=== PATIENT | female | born 1955 | race Caucasian/White ===

== ENCOUNTER 2021-02-23 | Emergency (ER) | payer OTHER, SELFPAY ==
[2021-02-23] VITALS (7 sets, daily range): BP systolic 99–136; BP diastolic 57–86; PULSE 83–99; RESP 16–18; TEMP 36.2; O2SAT 97–100
[2021-02-23 00:47] LABS: Basophils Percent Auto 0.2 % (0.2-1.2); Eosinophils Absolute Auto 0.1 K/mm3 (0-0.3); Eosinophils Percent Auto 0.4 % (0-4.4); Hematocrit 40.6 % (37.0-47.0); Hemoglobin 13.7 g/dL (12.0-15.0); Immature Granulocyte Absolute 0.06 K/mm3 (0.00-0.031); Immature Granulocyte Percent A 0.5 % (0-0.5); Lymphocytes Absolute Auto 0.77 K/mm3 (0.9-3.2); Mean Corpuscular HGB Conc 33.7 g/dl (32-36); Mean Corpuscular Hemoglobin 30.6 pg (26-34); Mean Corpuscular Volume 90.8 fl (80-100); Monocytes Absolute Auto 0.7 K/mm3 (0.1-0.6); Monocytes Percent Auto 5.7 % (2.6-8.5); Neutrophils Absolute Auto 11.2 K/mm3 (1.3-6.7); Neutrophils Percent Auto 87.2 % (45.5-73.1); Platelet Count Result 236 k/mm3 (150-375); Red Blood Count 4.47 M/mm3 (4.2-5.4); Red Cell Distribution Width 13.2 % (11.5-14.5); White Blood Count 12.9 K/mm3 (4.5-10.0)
[2021-02-23 01:00] LABS: Alanine Aminotransferase 17 U/L (4-35); Albumin Level 4.3 g/dL (3.5-5.1); Alkaline Phosphatase 64 U/L (38-126); Anion Gap 6 mmol/L (8-16); Aspartate Amino Transferase 25 U/L (14-36); Bilirubin,Total 0.4 mg/dL (0.2-1.3); Blood Urea Nitrogen 20 mg/dL (7-17); Calcium 9.2 mg/dL (8.4-10.2); Carbon Dioxide 26 mmol/L (22-30); Chloride 104 mmol/L (98-107); Estimated CRCL calculation 52 ml/min; Estimated Glomerular Filt Rate > 60; Glucose 146 mg/dL (65-105); Lipase 74 U/L (23-300); Magnesium 1.9 mg/dL (1.6-2.3); Potassium 3.8 mmol/L (3.4-5.0); Sodium 136 mmol/L (137-145)
[2021-02-23] MEDS: LORazepam INJ (*CRX) 2 MG/ML VIAL 0.5 MG IV PUSH ×2 (01:47→04:41)
[2021-02-23] MEDS: ONDANSETRON INJ 4 MG/2 ML VIAL IV PUSH (01:47)
[2021-02-23] MEDS: MAGNESIUM SULF 1 GM/D5W 100 ML 1 GM/100 ML BAG IVPB (01:48)
[2021-02-23] MEDS: SODIUM CHLORIDE 0.9% IV 1,000 ML 999 ML IV CONT (01:48)
--- NOTE | 2021-02-23 03:32 | ED.GENADULT ---
HPI - General Adult General Chief complaint: Nausea/Vomiting/Diarrhea Stated complaint: diarrhea, vomiting, leg cramps Time Seen by Provider: 02/23/21 00:31 History of Present Illness HPI narrative: Patient 66-year-old female presents emergency department with complaint of nausea and vomiting. Patient reports that she went out with some friends and they all started getting nausea and vomiting. The patient reports she has history of problems with gastroenteritis in the past and tends to get electrolyte abnormalities and get cramping. The patient states she has cramping in her legs and is feels generally unwell afterwards patient denies having localizing abdominal pain with this. Patient denies fever or chills Related Data Allergies Allergy/AdvReac Type Severity Reaction Status Date / Time Penicillins Allergy Unknown Verified 02/11/14 15:15 NKFA Allergy Unknown Uncoded 04/01/03 11:25 Review of Systems Review of Systems: Narrative: A 10 system review of systems was completed on the patient and is negative except for what is stated in the HPI. Nursing and ancillary documentation was reviewed. [facility] Family History Family History Mother Family history of malignant neoplasm of breast in first degree relative, Onset Age: 81 Patient's mother is Social History Social History Smoking status: Never smoker Alcohol intake: current Exam Narrative: Exam Narrative: GENERAL: Well-appearing, well-nourished, and in no acute distress. HEAD: Normocephalic, atraumatic. EYES: PERRLA and EOMI. ENT: Nares clear, no rhinorrhea or epistaxis. Mucous membranes moist. NECK: Supple. CHEST: Clear to auscultation. No respiratory distress. HEART: Regular rate and rhythm. No murmur heard. Normal peripheral pulses. ABDOMEN: Soft, nontender to palpation, nondistended, normal active bowel sounds. EXTREMITIES: Normal range of motion. No edema. SKIN: Warm, dry, no rash. NEURO: No focal deficits. Alert and oriented x3. PSYCH: Normal mood and affect. Course Vital Signs Vital signs: Vital Signs Temperature 36.2 C L 02/23/21 00:19 Pulse Rate 87 02/23/21 00:19 Respiratory Rate 16 02/23/21 00:19 Blood Pressure 136/86 02/23/21 00:19 Pulse Oximetry 98 02/23/21 00:19 Temperature 36.2 C L 02/23/21 00:19 Pulse Rate 90 02/23/21 06:39 Respiratory Rate 18 02/23/21 06:39 Blood Pressure 107/57 L 02/23/21 06:39 Pulse Oximetry 98 02/23/21 06:39 Medical Decision Making Vital Signs Vital Signs: Vital Signs Temperature 36.2 C L 02/23/21 00:19 Pulse Rate 87 02/23/21 00:19 Respiratory Rate 16 02/23/21 00:19 Blood Pressure 136/86 02/23/21 00:19 Pulse Oximetry 98 02/23/21 00:19 Temperature 36.2 C L 02/23/21 00:19 Pulse Rate 90 02/23/21 06:39 Respiratory Rate 18 02/23/21 06:39 Blood Pressure 107/57 L 02/23/21 06:39 Pulse Oximetry 98 02/23/21 06:39 Lab Data Result diagrams: 02/23/21 00:40 02/23/21 00:40 Labs: Lab Results 02/23/21 02/23/21 02/23/21 Range/Units 00:40 00:40 03:21 WBC 12.9 H (4.5-10.0) K/mm3 RBC 4.47 (4.2-5.4) M/mm3 Hgb 13.7 (12.0-15.0) g/dL Hct 40.6 (37.0-47.0) % MCV 90.8 (80-100) fl MCH 30.6 (26-34) pg MCHC 33.7 (32-36) g/dl RDW 13.2 (11.5-14.5) % Plt Count 236 (150-375) k/mm3 MPV 9.0 (7.4-10.4) fl Immature Gran % (Auto) 0.5 (0-0.5) % Neut % (Auto) 87.2 H (45.5-73.1) % Lymph % (Auto) 6.0 L (18.3-44.2) % [place] % (Auto) 5.7 (2.6-8.5) % Eos % (Auto) 0.4 (0-4.4) % Baso % (Auto) 0.2 (0.2-1.2) % Lymph # (Auto) 0.77 L (0.9-3.2) K/mm3 [place] # (Auto) 0.7 H (0.1-0.6) K/mm3 Eos # (Auto) 0.1 (0-0.3) K/mm3 Baso # (Auto) 0.0 (0.0-0.1) K/mm3 Abs Immat Gran (auto) 0.06 H (0.00-0.031) K/mm3 Absolute
[2021-02-23 03:56] LABS: Add Urine Microscopic? YES; Appearance Urine Clear (Clear); Bacteria Urine Trace /hpf; Bilirubin Urine Negative (Negative); Blood Urine Negative (Negative); Color Urine Yellow (Yellow); Glucose Urine UA Negative (Negative); Ketones Urine Negative (Negative); Leukocyte Esterase Ur Negative LEU/UL (Negative); Mucus Urine Rare /lpf; Nitrate Urine Negative (Negative); Protein Urine 1+ mg/dL (Negative); RBC Urine 0-2 /hpf (0-2); Specific Grav Ur 1.017 (1.001-1.035); Squamous Epithelial Cell Urine Rare /hpf (Few); Urobilinogen Urine Negative mg/dL (<2.0); WBC Urine 0-3 /hpf
[2021-02-23] MEDS: PROCHLORPERAZINE EDISYLATE 10 MG/2 ML VIAL IV PUSH (05:13)
== END 2021-02-23 07:13 | disposition home or self-care (01) ==
PROVIDERS: General Practice; Emergency Provider Emergency Medicine
DX: K52.9 Noninfective gastroenteritis and colitis, unspecified (principal); R25.2 Cramp and spasm
CPT/HCPCS: 36415; 80053; 81001; 83690; 83735; 85025; 96365; 96375; 96376; 99284; J0780; J2060; J2405; J3475; J7030

== ENCOUNTER 2023-08-15 14:51 | Outpatient (CLI) | payer MEDICARE, SELFPAY ==
--- NOTE | ~2023-08-15 | MR_ITS ---
EXAMINATION: MR IAC wo/w con DATE: 08/15/2023 16:03 INDICATION: Hearing loss. TECHNIQUE: Magnetic resonance imaging (MRI) of the brain, brainstem, and internal auditory canals was performed without and with 12 mL MultiHance intravenous contrast. COMPARISON: None. FINDINGS: There are a few scattered areas of nonspecific increased T2-weighted signal intensity in th e cerebral white matter, which is within normal limits for the patient's age. There is no intracrania l hemorrhage, acute infarction, or abnormal intracranial mass lesion. The ventricles are normal in si ze. There is mild mucosal thickening in the ethmoid sinuses. The orbits are normal. The internal kingsley tory canals and inner ears and tympanic cavities are normal. The mastoid air cells are normal. IMPRESSION: 1. Normal brain. Reviewed, dictated and finalized at location E. LOPMENTAL THERAPIST IMPRESSION: 1. Normal brain.
== END 2023-08-15 14:52 | disposition home or self-care (01) ==
LOC: ANHIMG 15:00
DX: H91.90 Unspecified hearing loss, unspecified ear (principal)
CPT/HCPCS: 70553; A9577

== ENCOUNTER 2024-06-12 14:57 | Outpatient (CLI) | payer MEDICARE, SELFPAY ==
--- NOTE | ~2024-06-12 | XR_ITS ---
EXAMINATION: XR foot RT min 3V DATE: 06/12/2024 15:37 INDICATION: Right foot pain. TECHNIQUE: 4 views of right foot were obtained. COMPARISON: None. FINDINGS: Bone alignment is normal. No fracture. There is mild osteoarthritis of first metatarsophala ngeal joint and some of the interphalangeal joints. There is an enthesophyte at plantar aspect of dee caneal tuberosity. IMPRESSION: 1. Mild polyarticular osteoarthritis. Reviewed, dictated and finalized at location A.
== END 2024-06-12 14:58 | disposition home or self-care (01) ==
DX: M19.071 Primary osteoarthritis, right ankle and foot (principal)
CPT/HCPCS: 73630

== ENCOUNTER 2025-09-29 10:45 | Emergency (ER) | payer MEDICARE, SELFPAY ==
--- NOTE | ~2025-09-29 | CT_ITS ---
EXAMINATION: CT abdomen pelvis w con DATE: 09/29/2025 12:40 INDICATION: Lower abdominal pain. Pelvic pain. TECHNIQUE: Computed tomography (CT) of the abdomen and pelvis was performed with 100 cc Omnipaque 350 intravenous contrast. The dose-length product was 177.47 mGy-cm. Automated exposure control and iterative reconstruction technique were employed. COMPARISON: None. FINDINGS: There is dependent atelectasis. Heart size normal. No significant pleural or pericardial effusion. Fatty infiltration of the liver. There are liver cysts. The spleen, pancreas, adrenal glands are unremarkable. Gallbladder is present. The kidneys are unremarkable. Nonobstructive bowel gas pattern. Appendix is unremarkable. There is thickening of the sigmoid colon with mild surrounding inflammatory change, consistent with acute diverticulitis. No evidence for perforation or abscess. Mild phlegmonous change. Trace free fluid in the pelvis. No discrete abscess. There is levoscoliosis. There is osteoarthritis of the hips. IMPRESSION: 1. Acute uncomplicated diverticulitis of the sigmoid colon. Reviewed, dictated and finalized at location O. D DONOR RECRUITER SUPERVISOR
[2025-09-29 10:52] VITALS: BP 125/70; PULSE 59; RESP 17; O2SAT 99
--- OUTSIDE RECORDS SUMMARY | 2025-09-29 11:15 | XMS_ITS | Encounter Summary ---
Author Organization [facility] Healthcare Address [address] [place] [id number] Care Team Providers Care Sausage Grinder Name Role Phone Francesca Whitman MD Primary Care Provider + Reason for Visit * Reason Comments Abdominal Pain Lower abdominal pain , low grade fever, headache x 2 days Encounter Details Date Type Department Care Team (Late st Contact Info) Description 09/29/2025 11:15 AM INFRASTRUCTURE ANALYST Office Visit [facility] at [address] [phone] Reina Odonnell NP [address] [place] [phone] Lower abdominal pain (Primary Dx); Pelvic pain Social History Tobacco Use Types Packs/Day Years Used Date Smoking Tobacco: Former Smokeless Tobacco: Never Alcohol Use Standard Drinks/Week Comments Yes 0 (1 standard drink = 0.6 oz pur e alcohol) rarely PHQ-2 Answer Date Recorded PHQ-2 Total Score (If total score is 3 or more points, staff should administer the PHQ-9) 0 08/05/2025 AUDIT-C Answer Date Recorded Q1: How often do you have a drink containing alc ohol? Never 08/05/2025 Average Number of Drinks Not on file 025 Frequency of Binge Drinking Not on file 07/10 Comments No Sex and Gender Information Value Date Recorded Sex Assigned at Not on file Legal Sex Female 3:13 AM INFRASTRUCTURE ANALYST Gender Identity Female 07/06/2021 8:12 AM CDT Sexual Orientation Not on file documented as of this encounter Last Filed Vital Signs Vital Sign Reading Time Taken Comments Blood Pressure 103/69 09/29/2025 9:28 AM INFRASTRUCTURE ANALYST Pulse 85 09/29/2025 9:28 AM INFRASTRUCTURE ANALYST Temperature 37 C (98.6 F) 09/29/2025 9:28 AM INFRASTRUCTURE ANALYST Respiratory Rate 18 09/29/2025 9:28 AM INFRASTRUCTURE ANALYST Oxygen Saturation 98% 09/29/2025 9:28 AM INFRASTRUCTURE ANALYST Inhaled Oxygen Concentration - - Weight 56.7 kg (125 lb) 09/29/2025 9:28 AM INFRASTRUCTURE ANALYST Height 172.7 cm (5' 8) 09/29/2025 9:28 AM INFRASTRUCTURE ANALYST Body Mass Index 19.01 09/29/2025 9:28 AM INFRASTRUCTURE ANALYST documented in this encounter Patient Instructions * Patient Instructions* Reina Odonnell NP - 09/29/2025 11:15 AM INFRASTRUCTURE ANALYST Patient presents with right lower quadrant, suprapubic pain, pelvic pain, left lower quadrant abdominal pain x2 days. Patient is having difficulty with increased pain with sitting and standing. Patient denies any dysuria. Reports pain feels similar to when she had PID previously and was admitted for IV antibiotics. Patient has a history of section otherwise no previous surgical history. Patient does report low-grade fever at home. Vitals were stable in the clinic. UA overall normal other than a trace amount of blood. Concern for intra-abdominal etiology. Patient will also likely needpain management as she is having difficulty with movement and pain Component Ref Range & Units 09/29/25 0958 Color, Urine, POC Dark Yellow Clarity, ur, POC Clear Clear Glucose, ur, POC Negative Negative Bilirubin, ur, POC Negative Negative Ketones, ur, POC Negative Trace Abnormal Specific [place], POC 1.003 - 1.030 1.015 Blood, ur, POC Negative Trace Abnormal pH, ur, POC 5.0 - 8.0 6.5 Protein, ur, POC Negative Negative Urobilinogen, urine, POC 0.2 - 1.0 mg/dL 0.2 Nitrite, ur, POC Negative Negative Leukocytes, ur, POC Negative Negative Lot Number [id number] ASTRUCTURE ANALYST documented in this encounter Plan of Treatment Scheduled Orders Name Type Priority Associated Diagnoses Orde r Schedule Urine culture Urine, clean voided Microbiology Routine Lower abdominal pain Expected: 09/29/2025, Expires: 09/29/2026 documented as of this encounter Procedures Procedure Name Priority Date/Time Associated Diagnosis Comments POCT URINALYSIS DIPSTICK Routine 09/29/2025 9:58 AM INFRASTRUCTURE ANALYST Lower abdominal pain documented in this encounter Results * (ABNORMAL) POCT urinalysis dipstick (09/29/2025 9:58 AM INFRASTRUCTURE ANALYST) Color, Urine, POC Dark Yellow Clarity, ur, POC Clear Clear Glucose, ur, POC Negative Negative Bilirubin, ur, POC Negative Negative Ketones, ur, POC Trace(A) Negative Specific [place], POC 1.015 1.003 - 1.030 Blood, ur, POC Trace(A) Negative pH, ur, POC 6.5 5.0 - 8.0 Protein, ur, POC Negative Negative Urobilinogen, urine, POC 0.2 0.2 - 1.0 mg/dL Nitrite, ur, POC Negative Negative Leukocytes, ur, POC Negative Negative Lot Number [id number] Urine 09/29/2025 9:58 AM INFRASTRUCTURE ANALYST Reina Odonnell NP POINT OF CARE TEST ORDERAB LES Final Result documented in this encounter Visit Diagnoses Diagnosis Lower abdominal pain- Primary Abdominal pain, other specified site Pelvic pain documented in this encounter Care Teams Sausage Grinder Relationship Specialty Start Date End Date Francesca Whitman MD PCP - General 04/03/18 documented as of this encounter
--- OUTSIDE RECORDS SUMMARY | 2025-09-29 11:15 | XMS_ITS | Encounter Summary ---
Author Organization [facility] Healthcare Address [address] [place] [address] Care Team Providers Care Mold Maker Plastic Molds Name Role Phone Francesca Whitman MD Primary Care Provider + Reason for Visit * Reason Comments Abdominal Pain Lower abdominal pain , low grade fever, headache x 2 days Encounter Details Date Type Department Care Team (Late st Contact Info) Description 09/29/2025 11:15 AM SILVER SOLUTION MIXER Office Visit [facility] at [address] [phone] Reina Odonnell NP [address] [place] [phone] Lower abdominal pain (Primary Dx); Pelvic [...] on file Legal Sex Female 3:13 AM SILVER SOLUTION MIXER Gender Identity Female 07/06/2021 8:12 AM CDT Sexual Orientation Not on file documented as of this encounter Last Filed Vital Signs Vital Sign Reading Time Taken Comments Blood Pressure 103/69 09/29/2025 9:28 AM SILVER SOLUTION MIXER Pulse 85 09/29/2025 9:28 AM SILVER SOLUTION MIXER Temperature 37 C (98.6 F) 09/29/2025 9:28 AM SILVER SOLUTION MIXER Respiratory Rate 18 09/29/2025 9:28 AM SILVER SOLUTION MIXER Oxygen Saturation 98% 09/29/2025 9:28 AM SILVER SOLUTION MIXER Inhaled Oxygen Concentration - - Weight 56.7 kg (125 lb) 09/29/2025 9:28 AM SILVER SOLUTION MIXER Height 172.7 cm (5' 8) 09/29/2025 9:28 AM SILVER SOLUTION MIXER Body Mass Index 19.01 09/29/2025 9:28 AM SILVER SOLUTION MIXER documented in this encounter Patient Instructions * Patient Instructions* Reina Odonnell NP - 09/29/2025 11:15 AM SILVER SOLUTION MIXER Patient presents with right lower quadrant, suprapubic [...] Ketones, ur, POC Negative Trace Abnormal Specific [place], POC 1.003 - 1.030 1.015 Blood, ur, POC Negative Trace Abnormal pH, ur, POC 5.0 - 8.0 6.5 Protein, ur, POC Negative Negative Urobilinogen, urine, POC 0.2 - 1.0 mg/dL 0.2 Nitrite, ur, POC Negative Negative Leukocytes, ur, POC Negative Negative Lot Number [id number] ER SOLUTION MIXER documented in this encounter Plan of Treatment Scheduled Orders Name Type Priority Associated Diagnoses Orde r Schedule Urine culture Urine, clean voided Microbiology Routine Lower abdominal pain Expected: 09/29/2025, Expires: 09/29/2026 documented as of this encounter Procedures Procedure Name Priority Date/Time Associated Diagnosis Comments POCT URINALYSIS DIPSTICK Routine 09/29/2025 9:58 AM SILVER SOLUTION MIXER Lower abdominal pain documented in this encounter Results * (ABNORMAL) POCT urinalysis dipstick (09/29/2025 9:58 AM SILVER SOLUTION MIXER) Color, Urine, POC Dark Yellow Clarity, ur, POC Clear Clear Glucose, ur, POC Negative Negative Bilirubin, ur, POC Negative Negative Ketones, ur, POC Trace(A) Negative Specific [place], POC 1.015 1.003 - 1.030 Blood, ur, POC Trace(A) Negative pH, ur, POC 6.5 5.0 - 8.0 Protein, ur, POC Negative Negative Urobilinogen, urine, POC 0.2 0.2 - 1.0 mg/dL Nitrite, ur, POC Negative Negative Leukocytes, ur, POC Negative Negative Lot Number [id number] Urine 09/29/2025 9:58 AM SILVER SOLUTION MIXER Reina Odonnell NP POINT OF CARE TEST ORDERAB LES Final Result documented in this encounter Visit Diagnoses Diagnosis Lower abdominal pain- Primary Abdominal pain, other specified site Pelvic pain documented in this encounter Care Teams Mold Maker Plastic Molds Relationship Specialty Start Date End Date Francesca Whitman MD PCP - General 04/03/18 documented as of this encounter
[2025-09-29 11:33] LABS: Hematocrit 38.8 % (37.0-47.0); Hemoglobin 12.9 g/dL (12.0-15.0); Immature Granulocyte Percent A 0.3 % (0-0.5); Lymphocytes Absolute Auto 2.04 K/mm3 (0.9-3.2); Mean Corpuscular HGB Conc 33.2 g/dl (32-36); Mean Corpuscular Hemoglobin 30.6 pg (26-34); Mean Corpuscular Volume 91.9 fl (80-100); Nucleated Red Blood Cells Absolute Auto 0.000 K/mm3 (0.0-0.012); Nucleated Red Blood Cells Perc 0.0 % (0.0-0.2); Platelet Count Result 218 k/mm3 (150-375); Red Blood Count 4.22 M/mm3 (4.2-5.4); White Blood Count 10.6 K/mm3 (4.5-10.0)
[2025-09-29 11:43] LABS: Alanine Aminotransferase 16 U/L (6-35); Albumin Level 3.9 g/dL (3.5-5.1); Alkaline Phosphatase 62 U/L (38-126); Anion Gap 6 mmol/L (4-12); Aspartate Amino Transferase 27 U/L (14-36); Bilirubin,Total 0.6 mg/dL (0.2-1.3); Blood Urea Nitrogen 23 mg/dL (7-17); Calcium 9.0 mg/dL (8.4-10.2); Carbon Dioxide 27 mmol/L (22-30); Chloride 101 mmol/L (98-107); Estimated CRCL calculation 41 ml/min; Estimated Glomerular Filt Rate 54; Glucose 96 mg/dL (65-110); Lipase 55 U/L (23-300); Potassium 4.0 mmol/L (3.4-5.0); Sodium 134 mmol/L (137-145); Total Protein 7.0 g/dL (6.3-8.2)
[2025-09-29 11:51] LABS: Add Urine Microscopic? YES; Appearance Urine Clear (Clear); Glucose Urine UA Negative (Negative); Leukocyte Esterase Ur 1+ LEU/UL (Negative); Need Manual Microscopic Reviewed; Nitrate Urine Negative (Negative); Non Pathogenic Casts 0-2; Specific Grav Ur 1.018 (1.001-1.035)
--- NOTE | 2025-09-29 12:16 | ED_ITS ---
HPI - Abdominal Pain General Chief Complaint: Abdominal Pain Stated Complaint: abd. pain Time Seen by Provider: 09/29/25 10:57 Source: patient Mode of arrival: ambulatory Limitations: no limitations History of Present Illness HPI narrative: Patient is a 70-year-old female who presents the ED with report of lower abdominal/pelvic pain. Patient reports having pain for the past 2 days. He denies aggravating or alleviating factors to the pain. Has not taken anything for pain. Denies nausea, vomiting, diarrhea, constipation, fevers, dysuria, hematuria. She does report pressure with urination. Last bowel movement was this morning. She reports history of PID 20 years ago and states this feels similar. Related Data Allergies Allergy/AdvReac Type Severity Reaction Status Date / Time Penicillins Allergy Intermediate Hives Verified 09/29/25 10:55 Review of Systems 2 Review of Systems: All systems reviewed & are unremarkable except as noted in HPI. All systems reviewed & are unremarkable except as noted in HPI and below PMFSH Family History Family History Mother Family history of malignant neoplasm of breast in first degree relative, Onset Age: 81 Patient's mother is Social History Social History Smoking status: Never smoker Alcohol intake: current Exam 2 Narrative: GENERAL: Well appearing, thin, non-toxic, in no acute distress. HEAD: Normocephalic, atraumatic. RESPIRATORY: Airway patent, respirations nonlabored. Clear to auscultation bilaterally, no rales, rhonchi, wheezing. CARDIOVASCULAR: Regular rate and rhythm without murmurs, rubs, or gallops. ABDOMINAL: Soft, mild diffuse tenderness throughout lower abdomen/suprapubic region, nondistended. Normoactive BS. MUSCULOSKELETAL: Moves all extremities. No gross deformities. SKIN: Warm, dry, normal color. NEURO: A&O X3. Speech clear. Cranial nerves II-XII grossly intact. Steady gait. No ataxic movements. PSYCHIATRIC: Appropriate mood and affect. Normal interaction. Course Vital Signs Vital signs: Vital Signs Pulse Rate 59 L 09/29/25 10:52 Respiratory Rate 17 09/29/25 10:52 Blood Pressure 125/70 09/29/25 10:52 Pulse Oximetry 99 09/29/25 10:52 Oxygen Delivery Room Air 09/29/25 10:52 Pulse Rate 80 09/29/25 13:53 Respiratory Rate 16 09/29/25 13:53 Blood Pressure 136/88 09/29/25 13:53 Pulse Oximetry 97 09/29/25 13:53 Oxygen Delivery Room Air 09/29/25 10:52 MDM MDM Narrative Medical decision making narrative: Patient presented to ED with 2 day history of lower abdominal/pelvic pain pressure. Vital signs are stable upon arrival. Patient is in no acute distress. Declined pain medication. CBC with white blood cell count of 10.6. Remainder basic laboratory studies are otherwise fairly unremarkable. Lactic acid within normal range at 0.8. UA is clear. No significant signs of infection. CT scan of abdomen/pelvis was obtained and showing acute uncomplicated sigmoid diverticulitis. No abscess or perforation. Consistent with clinical picture. Discussed lab and imaging findings with patient. She has remained stable throughout ED stay. Feel she is safe for discharge home on oral antibiotics with outpatient follow-up. Will provide information for diverticulitis diet. Given strict return precautions. She is in agreement with plan, all questions answered. Feels comfortable going home. Discharged in stable condition. Differential Diagnosis Differential Diagnosis: Bowel obstruction, diverticulitis, constipation, abdominal pain, PID, UTI, kidney stones Medical Records I have reviewed the following patient records and this information was taken into consideration when formulating the assessment and plan.: previous labs, previous ER visits, previous hospitalizations and previous clinic visits Lab Data [facility] Lab Attestation statement: I personally reviewed the patient's lab results. 09/29/25 11:26 09/29/25 11:26 Labs: Lab Results 09/29/25 Range/Units 11:26 WBC 10.6 H (4.5-10.0) K/mm3 RBC 4.22 (4.2-5.4) M/mm3 Hgb 12.9 (12.0-15.0) g/dL Hct 38.8 (37.0-47.0) % MCV 91.9 (80-100) fl MCH 30.6 (26-34) pg MCHC 33.2 (32-36) g/dl RDW 13.9 (11.5-14.5) % Plt Count 218 (150-375) k/mm3 MPV 9.2 (7.4-10.4) fl Immature Gran % (Auto) 0.3 (0-0.5) % Neut % (Auto) 64.7 (45.5-73.1) % Lymph % (Auto) 19.2 (18.3-44.2) % [place] % (Auto) 14.8 H (2.6-8.5) % Eos % (Auto) 0.8 (0-4.4) % Baso % (Auto) 0.2 (0.2-1.2) % Lymph # (Auto) 2.04 (0.9-3.2) K/mm3 [place] # (Auto) 1.6 H (0.1-0.6) K/mm3 Eos # (Auto) 0.1 (0-0.3) K/mm3 Baso # (Auto) 0.0 (0.0-0.1) K/mm3 Abs Immat Gran (auto) 0.03 (0.00-0.031) K/mm3 Absolute Neuts (auto) 6.9 H (1.3-6.7) K/mm3 Absolute Nucleated RBC 0.000 (0.0-0.012) K/mm3 Nucleated RBC % 0.0 (0.0-0.2) % Sodium 134 L (137-145) mmol/L Potassium 4.0 (3.4-5.0) mmol/L Chloride 101 (98-107) mmol/L Carbon Dioxide 27 (22-30) mmol/L Anion Gap 6 (4-12) mmol/L BUN 23 H (7-17) mg/dL Creatinine 1.02 H (0.7-1.0) mg/dL Estim Creat Clear Calc 41 ml/min Estimated GFR 54 L (59 - ) Glucose 96 (65-110) mg/dL Lactic Acid 0.8 (0.7-2.0) mmol/L Calcium 9.0 (8.4-10.2) mg/dL Total Bilirubin 0.6 (0.2-1.3) mg/dL AST 27 (14-36) U/L ALT 16 (6-35) U/L Alkaline Phosphatase 62 (38-126) U/L Total Protein 7.0 (6.3-8.2) g/dL Albumin 3.9 (3.5-5.1) g/dL Lipase 55 (23-300) U/L Urine Color Yellow (Yellow) Urine Appearance Clear (Clear) Urine pH 6.0 (5.0-9.0) Ur Specific [place] 1.018 (1.001-1.035) Urine Protein Negative (Negative) mg/dL Urine Glucose (UA) Negative (Negative) mg/dL Urine Ketones Negative (Negative) mg/dL Ur Blood (Man) Negative (Negative) Urine Nitrate Negative (Negative) Urine Bilirubin Negative (Negative) Urine Urobilinogen 0.2 (<2.0) mg/dL Add Ur Microanalysis Reviewed Leukocyte Esterase Rfl 1+ H (Negative) KIRAN/UL Urine RBC 0-2 (0-2) /hpf Urine WBC 0-5 (0-3) /hpf Ur Squamous Epith Cells None seen (Few) /hpf Urine Bacteria None seen /hpf Urine Casts 0-2 Imaging Data Attestation: I personally reviewed and interpreted this imaging study as follows: Radiologist's impression: ITS Impressions Abdomen/Pelvis CT 09/29/25 12:42 IMPRESSION: 1. Acute uncomplicated diverticulitis of the sigmoid colon. Discharge Plan Discharge Clinical Impression: Diverticulitis of sigmoid colon Patient Disposition: Home Condition: Stable Instructions: Antibiotic Form, Diverticulitis (ED), High Fiber Diet (ED), Low Fiber Diet (ED), Diverticulitis Diet (ED) Additional Instructions: Take antibiotics as prescribed for diverticulitis. Recommend Tylenol, ibuprofen as needed for pain. Recommend low fiber diet while taking antibiotics and then gradually increasing fiber intake after finishing antibiotics. Stay well hydrated. Follow-up with your primary care doctor for further evaluation. Return to the ED if you experience worsening or severe pain, fevers, unable to keep down food or drink, rectal bleeding, dark black stools, or any other symptoms of concern. Patient Language: Latvian Prescriptions: New metronidazole 500 mg tablet 500 mg PO Q8H 7 Days Qty: 21 0RF ciprofloxacin HCl 500 mg tablet 500 mg PO Q12H 7 Days Qty: 14 0RF No Action ondansetron 4 mg tablet,disintegrating 4 mg PO Q8H PRN (Reason: nausea and vomiting) Qty: 10 0RF Follow-up/Referrals: Alicia Whitman [Other] Time of Disposition: 13:32
--- OUTSIDE RECORDS SUMMARY | 2025-09-29 12:29 | XMS_ITS | Encounter Summary ---
Author Organization [facility] Address [address] [place]: Epic Prelude ADT AICHA OLIVARES [phone] Care Team Providers Care Education Program Associate Name Role Phone Unavailable Primary Care Provider Unavailabl e Encounter Details Date Type Department Care Team (Late st Contact Info) Description 08/07/1995 Outpatient Historical Andrea Villela Social History Tobacco Use Types Packs/Day Years Used Date Smoking Tobacco: Never Assessed Comments Unknown Sex and Gender Information Value Date Recorded Sex Assigned at Not on file Legal Sex Female 4:39 AM DISCOTHEQUE DANCER Gender Identity Not on file Sexual Orientation Not on file documented as of this encounter Plan of Treatment Not on file documented as of this encounter Visit Diagnoses Not on filedocumented in this encounter
--- OUTSIDE RECORDS SUMMARY | 2025-09-29 12:29 | XMS_ITS | Encounter Summary ---
Author Organization [facility] Address [address] [place] [address] Care Team Providers Care Mental Health Nurse Practitioner Name Role Phone Unavailable Primary Care Provider Unavailabl e Encounter Details Date Type Department Care Team (Late st Contact Info) Description 01/11/2000 Outpatient Historical [facility] BACKING IN MACHINE TENDER - Medical [facility] [id number] [facility] [place] [address] [address] Andrea Villela Social History Tobacco Use Types Packs/Day Years Used Date Smoking Tobacco: Never Assessed Comments Unknown Sex and Gender Information Value Date Recorded Sex Assigned at Not on file Legal Sex Female 4:39 AM PHLEBOTOMIST Gender Identity Not on file Sexual Orientation Not on file documented as of this encounter Plan of Treatment Not on file documented as of this encounter Visit Diagnoses Not on filedocumented in this encounter
--- OUTSIDE RECORDS SUMMARY | 2025-09-29 12:29 | XMS_ITS | Clinical Summary ---
Author Organization [facility] Address [address] [place]: Epic Prelude ADT AICHA OLIVARES [address] Care Team Providers Care Hospital Wellness Coordinator Name Role Phone Unavailable Primary Care Provider Unavailabl e Social History Tobacco Use Types Packs/Day Years Used Date Smoking Tobacco: Never Assessed Comments Unknown Sex and Gender Information Value Date Recorded Sex Assigned at Not on file Legal Sex Female 4:39 AM UNDERWATER HUNTER Gender Identity Not on file Sexual Orientation Not on file Plan of Treatment Health Maintenance Due Date Last Done Comments DTAP/TDAP/TD VACCINES (1 - Tdap) 1974 BREAST CANCER SCREENING 1995 COLORECTAL SCREENING 01/31/2000 Colorectal Cancer Screening 01/31/2000 FIT-DNA Q 3 years 01/31/2000 FIT/FOBT Q 1 year 01/31/2000 Flex Sig/CT Colonography Q 5 years 01/31/2000 PNEUMOCOCCAL VACCINE 50+ YEARS (1 of 1 - PCV) 01/31/20 05 ZOSTER VACCINE (1 of 2) 2005 OSTEOPOROSIS SCREENING 01/31/2020 INFLUENZA VACCINE (#1) 2025 RSV VACCINE (60+ or ) (1 - 1-dose 75+ series) 2030
--- OUTSIDE RECORDS SUMMARY | 2025-09-29 12:29 | XMS_ITS | Clinical Summary ---
Author Organization [facility] Address [address] [place] [address] Care Team Providers Care Leacher Name Role Phone Francesca Whitman MD Primary Care Provider + Allergies Active Allergy Reactions Criticality Noted Date Comments Penicillins Hives,Urticaria,Rash Medium 04/27/2016 Medications calcium-mag oxide-vitamin D3 185-50-100 mg-mg-unit capsule Take 6 capsules by mouth daily Active cholecalciferol (VITAMIN D-3) 25 mcg (1,000 unit) tablet Take 1 tablet (1,000 Units total) by mouth daily Active R-LIPOIC ACID ORAL Take 1 tablet/capsule by mouth daily Active cyanocobalamin (Vitamin B-12) 500 mcg tabletIndications: Prevention of Vitamin B12 Deficiency Take 1 tablet (500 mcg total) by mouth daily Active UNABLE TO FIND Take 2 each by mouth daily Med Name: PLANT STEROL 500mg each Active magnesium aspartate (MAGINEX) 61 mg (615 mg) EC tabletIndications: hypomagnesemia Take 1,000 mg by mouth daily Active ascorbic acid (vitamin C) 100 mg tablet Take 1 tablet (100 mg total) by mouth daily Active valACYclovir (VALTREX) 1 gram tabletIndications: herpes simplex infection Take 2 tablets (2,000 mg total) by mouth 2 (two) times a day For just 1 day 6 tablet 1 07/30/20 Active Additional Information Patient not taking.Reported on 09/29/2025 betamethasone valerate (VALISONE) 0.1 % ointmentIndication s:Poison Sujey Apply topically 2 (two) times a day 45 g 10/31/20 24 Active methIMAzole (TAPAZOLE) 5 mg tabletIndications: Hyperthyroidism Take 0.5 tablets (2.5 mg total) by mouth daily 50 tablet 1 04/08/20 Active Additional Information Patient not taking.Reported on 09/29/2025 blood-glucose meter kit Use daily or as directed for monitoring of diabetes. 1 kit 07/29/20 Active blood glucose diagnostic strip Use with glucometer to check blood sugar up to 3x a day 90 strip 3 07/29/20 Active lancets misc Use with glucometer to check blood sugar up to 3x a day 90 each 3 07/29/20 Active rosuvastatin (CRESTOR) 5 mg tabletIndications: Mixed hyperlipidemia Take 1 tablet (5 mg total) by mouth daily 90 tablet 3 08/05/20 026 Active Active Problems Problem Noted Date Diagnosed Date Diabetes type 2, controlled 08/04/2025 Colon polyps 07/23/2024 Overview (07/23/2024): - Colon CA screening - Colonoscopy Nov 2015 [facility] - tics - Colonoscopy April 2021 ([facility] Dr [place]) one 6mm polyp; repeat in 5 yrs (2025) Hyperparathyroidism 05/23/2022 Finger pain, right 06/06/2021 Assessment & Plan (06/06/2021 5:40 PM CDT): Seen recently with Rt pinky pain and stiffness - - DIP Rt hand for 6-8 wks; no trauma Interferes with activities a bit No fever or wt loss No other joints bothersome exc some arthritis in thumbs Mixed hyperlipidemia 04/28/2021 Assessment & Plan (06/06/2021 5:48 PM CDT): No personal hx of CVD. April 2021 LDL 134. ASCVD risk 5.1% Endo recommended starting atorvastatin 5-10mg 3 times per week at first, then gradually increase to daily as tolerated. She was hesitant to start new medication; prefers to try red yeast rice extract first. Recheck lipid panel later this year Lab Results Component Value Date CHOL 218 (H) 04/06/2021 CHOL 197 05/08/2020 CHOL 184 06/19/2019 Lab Results Component Value Date TRIG 127 04/06/2021 TRIG 66 05/08/2020 TRIG 120 06/19/2019 Lab Results Component Value Date HDL 60 04/06/2021 HDL 64 05/08/2020 HDL 53 06/19/2019 Lab Results Component Value Date LDL 134 (H) 04/06/2021 LDL 117 (H) 05/08/2020 LDL 108 (H) 06/19/2019 Assessment & Plan (04/28/2021 10:41 AM CDT): 03/2021: LDL 134. ASCVD risk 5.1%, indication for moderate intensity statin No personal hx of CVD. Recommended starting atorvastatin 5-10mg 3 times per week at first, then gradually increase to daily as tolerated. Pt hesitant to starting new medication. Discussed benefits of statin for CVD prevention. She wants to try red yeast rice extract first. Recheck lipid panel in 3-6 months. 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) 01/27/2021 Overview (06/06/2021): Last Assessment & Plan: - No evidence of recurrence at previous sites - Sun protection education reviewed, handout provided - Annual FBSE recommended Allergic rhinitis 11/06/2019 Cervicalgia 11/06/2019 Nummular eczema 11/06/2019 Polyp of nasal cavity 11/06/2019 Sacroiliitis, not elsewhere classified 0 Sicca syndrome 11/06/2019 Tear film insufficiency 11/06/2019 Temporomandibular joint disorders 11/06/2019 Vitamin D deficiency, unspecified 11/06/2019 Assessment & Plan (06/06/2021 5:46 PM CDT): Lab Results Component Value Date PTH 65 (H) 08/17/2017 Lab Results Component Value Date [id number] 48 07/06/2020 [id number] 29 (L) 12/25/2018 Thyrotoxicosis, unspecified without thyrotoxic crisis or storm 11/06/2019 Assessment & Plan (06/06/2021 5:29 PM CDT): followed by Endo; slowly tapering methimazole; clinically euthyroid. Dec 2017 TSH 1.50, fT4 1.07 Feb 2019 TSH decr to 0.39, fT4 0.9 - methimazole restarted Lab Results Component Value Date TSH 0.71 04/06/2021 TSH 1.06 05/08/2020 TSH 0.59 07/30/2019 FREET4 1.1 04/06/2021 FREET4 1.1 07/30/2019 FREET4 0.9 03/01/2019 Leg pain 04/03/2018 Preventative health care 03/30/2018 Overview (06/06/2021): Health maintenance. General - BMI is in healthy range - Exercise goal >150 min/week; Continue regular exercise - Recommend continue to eat a balanced diet, - DEXA - as above - Eye exam annual in fall - Lipids - as above - Screening for DM as above Cancer Screening - Colon CA screening - Colonoscopy Nov 2015 [facility] - tics - Pap per Outsole Compressor - WWE Aug 2017 (, LMP age 52) - mammogram May 2019 Infectious Disease - Screening HIV (age 13-75) - - Screening Hep C - neg 2016 - Hep B vaccine 2010 - Tetanus booster - will offer - Shingrix recombinant zoster - - Pneumococcal vaccine - PPV23 Pneumovax (as of 2018 - PCV13 Prevnar optional for healthy pts) - will get in Jul flu shot - COVID vaccine - Moderna x 2 Dec 2020 - Annual flu shot Assessment & Plan (06/06/2021 6:05 PM CDT): Thyroid nodule 09/18/2017 Overview (06/06/2021): Cold thyroid nodule on radioactive scan 2016 Thyroid US 2016 - Isoechoic, solid, 2.8x1.9x1cm on left mid to inferior margin. Increased vascularity of the thyroid gland. Benign on biopsy sep 2017 Stable by ultrasound Jul 2019 Assessment & Plan (04/28/2021 10:31 AM CDT): Low suspicion characteristics on US. Thyroid FNA pathology was benign 2016. US stable in 2019. Assessment & Plan (05/23/2020 8:15 PM CDT): Low suspicion characteristics on US. Thyroid FNA pathology was benign 2016. US stable in 2019. Assessment & Plan (08/02/2019 10:54 AM CDT): Low suspicion characteristics on US. Thyroid FNA pathology was benign. US today with no changes. Hyperthyroidism 08/24/2017 Assessment & Plan (06/06/2021 5:45 PM CDT): Hyperthyroidism, dx 2014; followed by Endo; slowly tapering methimazole; clinically euthyroid. Dec 2017 TSH 1.50, fT4 1.07 Feb 2019 TSH decr to 0.39, fT4 0.9 - methimazole restarted Lab Results Component Value Date TSH 0.71 04/06/2021 TSH 1.06 05/08/2020 TSH 0.59 07/30/2019 FREET4 1.1 04/06/2021 FREET4 1.1 07/30/2019 FREET4 0.9 03/01/2019 Assessment & Plan (04/28/2021 10:31 AM CDT): Currently tolerating methimazole 2.5 mg daily. TFTs continue to be normal on this dose. Assessment & Plan (05/23/2020 8:15 PM CDT): Currently tolerating methimazole 2.5 mg daily. TFTs continue to be normal on this dose. Assessment & Plan (08/02/2019 10:53 AM CDT): Currently tolerating methimazole 2.5 mg daily. Reviewed side effects and reasons to stop and call for labs. TFTs were normal on this dose. Osteoporosis 08/03/2017 Assessment & Plan (06/06/2021 5:50 PM CDT): Endo started alendronate January 2019 (had been delayed due to dental work / InvisAlign) then changed to Reclast zoledronate April 2019 DEXA Jul 2017 L spine -2.6, fem neck -1.6, total hip -1.1, DEXA April 2021 L spine -1.9 (ncr 2.7%), fem neck -2.0, hip -0.5 (incr 0.1%) Lab Results Component Value Date PTH 65 (H) 08/17/2017 Lab Results Component Value Date [id number] 48 07/06/2020 [id number] 29 (L) 12/25/2018 Assessment & Plan (04/28/2021 10:46 AM CDT): Continue calcium and vitamin D. Encouraged to continue weight bearing exercises. Received reclast in 04/26, 06/28. DXA yesterday 04/27/21 showed improvement on treatment. Will repeat reclast in 06/2021 assuming normal renal function. Assessment & Plan (05/23/2020 8:14 PM CDT): Continue calcium and vitamin D. Encouraged to continue weight bearing exercises. Received first reclast in 04/26, DXA several months ago showed improvement on treatment. Will repeat reclast assuming normal renal function. Assessment & Plan (08/02/2019 10:53 AM CDT): Continue calcium and vitamin D. Encouraged to continue weight bearing exercises. Received first reclast in 04/26, will repeat DXA after 1 year and likely repeat reclast. Gluten intolerance 06/09/2017 Overview (06/06/2021): Lab tests ruled out celiac. Had diffuse pain, tenderness all over body; feels better with less gluten. May be gluten sensitivity or FODMAP sensitivity Assessment & Plan (06/06/2021 5:59 PM CDT): Peripheral neuropathy 06/09/2017 Assessment & Plan (06/06/2021 5:27 PM CDT): Peripheral neuropathy, painful. Her mother had it too, but no other relatives. Perhaps slight improvement with OTC alpha lipoic acid 2018 Vit B12 was 356 - - suggested taking OTC B12 supplement (1 mg = 1000 mcg/day) Lab Results Component Value Date VITB12 1,172 (H) 07/06/2020 VITB12 356 06/19/2019 VITB12 431.90 06/09/2017 Assessment & Plan (05/23/2020 8:13 PM CDT): Worsening symptoms. Had negative basic workup several years ago. Requesting referral to neurology for evaluation. Carpal tunnel syndrome 08/17/2016 Resolved Problems Problem Noted Date Diagnosed Date Resolved Date Achilles bursitis or tendinitis 11/06/2019 06/06/2021 Paronychia of great toe of left foot 11/06/2019 06/06/2021 Encounters Date Type Department Care Team Description 09/29/2025 11:15 AM ORTHOTIC FINISH GRINDING TECHNICIAN Office Visit [facility] Care at [address] [phone] Reina Odonnell NP Lower abdominal pain (Primary Dx); Pelvic pain 08/05/2025 1:00 PM CDT Office Visit [place] [id number] [facility] [address] [place] [address] Francesca Whitman MD Encounter for Medicare annual wellness exam (Primary Dx); Diabetes type 2, controlled; Mixed hyperlipidemia; Hyperthyroidism 08/05/2025 9:00 AM CDT Clinical Support [facility] Endocrinology Metabolism and Lipid [address] [place] [address] 13[address] [place] [address] [place] [phone] Diabetes type 2, controlled (Primary Dx) 08/01/2025 7:55 AM CDT Lab [address] [address] Hyperthyroidism; Mixed hyperlipidemia; Prediabetes 08/01/2025 Results Follow-Up [facility] 12th [place] [address] [place] [address] Lore Isaac MD Thyroid Function [place], Lipid panel, Hemoglobin A1c 07/29/2025 9:00 AM CDT Clinical Support [facility] Endocrinology Metabolism and Lipid [address] [facility] [address]th [place] [address] [place] [address] Hyperglycemia due to diabetes mellitus (HCC) (Primary Dx) 07/22/2025 9:00 AM CDT Clinical Support [facility] Endocrinology Metabolism and Lipid [address] [facility] [address]th [place] [address] [place] [address] Type 2 diabetes mellitus without complication, without long-term current use of insulin (HCC) (Primary Dx) 07/15/2025 9:00 AM CDT Clinical Support [facility] Endocrinology Metabolism and Lipid [address] [facility] [address] [place] [address] [place] [address] Hyperglycemia due to diabetes mellitus (HCC) (Primary Dx) from Last 3 Months Immunizations Immunization Administration Dates Next Due COVID-19 mRNA ([employer]) 0.3 m L (30 mcg) vaccine (12 years and up) 08/02/2023 Hep B Vaccine 10/09/2010 Influenza, Quad, Adjuvantated, Intramuscular Influenza, Quadrivalent, Hig h Dose, Preservative Free, Intrr 07/11/2022,07/24/2020 Influenza, Quadrivalent, Rec ombinant, Egg Free, Preservative Free, Intramuscular 10/17/2018 Influenza, Quadrivalent, Spl it, Preservative Free, Intramuscular 07/19/2021 Influenza, Trivalent, Preservative Free, Intramu scular 08/17/2016,10/09/2010 Pneumococcal Conjugate Pcv20 06/20/2023 Tdap 04/10/2023 ZOSTER Recombinant 01/14/2021,08/07/2020 Surgical History Surgery Date Site/Laterality Comments SECTION Medical History Medical History Date Comments Disorder of thyroid Carpal tunnel syndrome of right wrist Mild carpal tunnel syndrome of right wrist - (Added by TW Conv) Cellulitis of finger of right hand Cellulitis of thumb, right - (Added by TW Conv) Osteopenia Family History Medical History Relation Name Comments Cancer Father Colon cancer Father Diabetes Father Heart attack Father Heart disease Father Testicular cancer Father Breast cancer Mother Cancer Mother Relation Name Status Comments Father Mother Sister Alive Social History Tobacco Use Types Packs/Day Years Used Date Smoking Tobacco: Former Smokeless Tobacco: Never Tobacco Cessation:Counseling Given: Not Answered Alcohol Use Standard Drinks/Week Comments Yes 0 [...] on file Legal Sex Female 3:13 AM ORTHOTIC FINISH GRINDING TECHNICIAN Gender Identity Female 07/06/2021 8:12 AM CDT Sexual Orientation Not on file Obstetrics History Para Term AB IAB SAB Ectopic Multiple Livin g Live Births 2 1 1 1 1 2 2 Date Outcome GA Total Labor Labor/2nd/3rd Weight Sex Type Anes PTL Love A1 A5 Name Clin 1982 AB 9w0d 1985 Term 2.449 kg (5 lb 6.4 oz) M CS-Un spec Living 1985 Term 2.54 kg (5 lb 9.6 oz) M CS-Un spec Living Last Filed Vital Signs Vital Sign Reading Time Taken Comments Blood Pressure 103/69 09/29/2025 9:28 AM ORTHOTIC FINISH GRINDING TECHNICIAN Pulse 85 09/29/2025 9:28 AM ORTHOTIC FINISH GRINDING TECHNICIAN Temperature 37 C (98.6 F) 09/29/2025 9:28 AM ORTHOTIC FINISH GRINDING TECHNICIAN Respiratory Rate 18 09/29/2025 9:28 AM ORTHOTIC FINISH GRINDING TECHNICIAN Oxygen Saturation 98% 09/29/2025 9:28 AM ORTHOTIC FINISH GRINDING TECHNICIAN Inhaled Oxygen Concentration - - Weight 56.7 kg (125 lb) 09/29/2025 9:28 AM ORTHOTIC FINISH GRINDING TECHNICIAN Height 172.7 cm (5' 8) 09/29/2025 9:28 AM ORTHOTIC FINISH GRINDING TECHNICIAN Body Mass Index 19.01 09/29/2025 9:28 AM ORTHOTIC FINISH GRINDING TECHNICIAN Plan of Treatment Health Maintenance Due Date Last Done Comments Albumin Creatinine Ratio, Urine 1955 Dilated Eye Exam 1955 Covid-19 Vaccine (2024-11 6 season) 2025 08/02/2023, 08/08/2022, 08/06/2021, Additional history exists Influenza Vaccine (#1) 2025 , 07/11/2022, 07/19/2021, Additional history exists Colon Cancer Screening-Colonoscopy 11/20/2025 11/20/2015 Osteoporosis Screening-Bone Density Scan 11/20/2025 11/20/2023, 08/30/2022, 04/27/2021, Additional history exists Hemoglobin A1C 2026 08/01/2025, 08/0 05/2025, 07/30/2024, Additional history exists Breast Cancer Screening-Mammogram 02/24/2026 02/24/2025, 02/21/2024, 11/11/2022, Additional history exists eGFR 05/16/2026 05/16/2025, 12/07, 06/21/2023, Additional history exists Lipid Panel 08/01/2026 08/01/2025, 07/10, 06/21/2023, Additional history exists Depression Screening 08/05/2026 08/05/2025, 07/30/2024, 06/20/2023, Additional history exists Fall Risk Assessment 08/05/2026 08/05/2025, 07/30/2024, 06/20/2023, Additional history exists Foot Exam 08/05/2026 08/05/2025 Well Visit 65+ 08/05/2026 08/05/2025, 07/10, 07/30/2024, Additional history exists DTaP/Tdap/Td Vaccine (2 - Td or Tdap) 04/10/2033 04/10/2023 Hepatitis B Screening Completed 10/09/2010 Colon Cancer Screening-CT Colonography Discontinued 11/20/2015 Colon Cancer Screening-DNA Stool Discontinued 11/20/19 16 Colon Cancer Screening-FIT Discontinued 11/20/2015 Colon Cancer Screening-Sigmoidoscopy Discontinued 11/20/2015 Zoster Vaccine Completed 01/14/2021, 08/07/2020 Hepatitis C Screening Completed 12/23/2022, 017 Pneumococcal vaccine 65+ Completed 06/20/2023 Procedures Procedure Name Priority Date/Time Associated Diagnosis Comments POCT URINALYSIS DIPSTICK Routine 09/29/2025 9:58 AM ORTHOTIC FINISH GRINDING TECHNICIAN Lower abdominal pain HEMOGLOBIN A1C Routine 08/01/2025 8:02 AM CDT Prediabetes LIPID PANEL Routine 08/01/2025 8:02 AM CDT Mixed hyperlipidemia THYROID FUNCTION CASCADE Routine 08/01/2025 8:02 AM CDT Hyperthyroidism EGFR Routine 05/16/2025 8:31 AM CDT Prediabetes SCREENING MAMMOGRAM BILATERAL W ABIEL Schedule Routine, Read Routine (OP Routine) 02/24/2025 1:03 PM CDT Screening mammogram, encounter for DEXA AXIAL AND FOREARM BONE DENSITY SCAN Schedule Routine, Read Routine (OP Routine) 11/20/2023 12:13 PM ORTHOTIC FINISH GRINDING TECHNICIAN Other osteoporosis without current pathological fracture HEPATITIS C SCREENING Routine 12/23/2022 COLONOSCOPY Routine 11/20/2015 from Last 3 Months or Most Recently Relevant to Health Maintenance Results * (ABNORMAL) POCT urinalysis dipstick (09/29/2025 9:58 AM ORTHOTIC FINISH GRINDING TECHNICIAN) Color, Urine, POC Dark Yellow Clarity, ur, POC Clear Clear Glucose, ur, POC Negative Negative Bilirubin, ur, POC Negative Negative Ketones, ur, POC Trace(A) Negative Specific [place], POC 1.015 1.003 - 1.030 Blood, ur, POC Trace(A) Negative pH, ur, POC 6.5 5.0 - 8.0 Protein, ur, POC Negative Negative Urobilinogen, urine, POC 0.2 0.2 - 1.0 mg/dL Nitrite, ur, POC Negative Negative Leukocytes, ur, POC Negative Negative Lot Number [id number] Urine 09/29/2025 9:58 AM ORTHOTIC FINISH GRINDING TECHNICIAN Reina Odonnell NP POINT OF CARE TEST ORDERAB LES Final Result * Thyroid Function [place] (08/01/2025 8:02 AM CDT) TSH 1.43 0.30 - 4.20 mcIUnit/mL Blood 08/01/2025 8:02 AM CDT 08/01/2025 10:41 AM CDT Lore Isaac MD LAB BLOOD ORDERABLES F inal Result Performing Organization Address [facility] de Phone Number [id number] [address] * (ABNORMAL) Hemoglobin A1c (08/01/2025 8:02 AM CDT) [facility] Hgb A1C 5.9(H) 4.0 - 5.6 % Estimated Average Glucose 123 mg/dL [facility] Comment: The ADA recommends reporting an estimated Average Glucose (eAG) with all Hemoglobin A1c results using the equation derived from a study of 507 normal and diabetic adults. Minority populations were underrepresented and children were not included. (Diabetes Care 31:1235-6171, 2008). The eAG is not equivalent to a fasting glucose. Blood 08/01/2025 8:02 AM CDT 08/01/2025 10:41 AM CDT Lore Isaac MD LAB BLOOD ORDERABLES F inal Result Performing Organization Address [facility] de Phone Number [address] [address] * Lipid panel (08/01/2025 8:02 AM CDT) Pathologist [facility] Cholesterol 174 30 - 199 mg/dL Comment: Interpretive Data Ages < or = 19 years Acceptable: <170 mg/dL Borderline high: 170-199 mg/dL High: >or= 200 mg/dL Ages > or = 20 years Desirable: <200 mg/dL Borderline high: 200-239 mg/dL High: >or= 240 mg/dL Literature References: 1. Expert Panel on Integrated Guidelines for Cardiovascular Health and Risk Reduction in Children and Adolescents. Pediatrics 2011;128:S213 2. NCEP Expert Panel. Circulation 2004;110:227 Current Interpretive Data was last revised on 2018. Triglycerides 50 <=149 mg/dL [facility] Comment: Interpretive Data Ages < or = 9 years Acceptable: <75 mg/dL Borderline high: 75-99 mg/dL High: >or= 100 mg/dL Ages 10 to 20 years Acceptable: <90 mg/dL Borderline high: 90-129 mg/dL High: >or= 130 mg/dL Ages > or = 20 years Desirable: <150 mg/dL Borderline high: 150-199 mg/dL High: 200-499 mg/dL Very high: >or= 499 mg/dL Literature References: 1. Expert Panel on Integrated Guidelines for Cardiovascular Health and Risk Reduction in Children and Adolescents. Pediatrics 2011;128:S213 2. NCEP Expert Panel. Circulation 2004;110:227 Current Interpretive Data was last revised on 2018. HDL 60 >=40 mg/dL [facility] Comment: Interpretive Data Ages < or = 19 years Acceptable: >45 mg/dL Borderline low: 40-45 mg/dL Low: <40 mg/dL Ages > or = 20 years Desirable: >or= 60 mg/dL Low: <40 mg/dL Literature References: 1. Expert Panel on Integrated Guidelines for Cardiovascular Health and Risk Reduction in Children and Adolescents. Pediatrics 2011;128:S213 2. NCEP Expert Panel. Circulation 2004;110:227 Current Interpretive Data was last revised on 2018. LDL, calculated 104 <=129 mg/dL [facility] Comment: Interpretive Data Ages < or = 19 years Acceptable: <110 mg/dL Borderline high: 110-129 mg/dL High: >or= 130 mg/dL Ages > or = 20 years Optimal: <100 mg/dL Near optimal: 100-129 mg/dL Borderline high: 130-159 mg/dL High: >160 mg/dL Calculated using the Schafer LDL-C estimating equation. This equation was implemented on 2024. Prior to this date LDL-C was estimated using the Friedewald equation. Literature References: 1. Expert Panel on Integrated Guidelines for Cardiovascular Health and Risk Reduction in Children and Adolescents. Pediatrics 2011;128:S213 2. NCEP Expert Panel. Circulation 2004;110:227 3. Gilmar Keene et al. JARET Cardiol. 2020 February 06;5(5):540-548. doi: 10.1001/[email or web address] Current Interpretive Data was last revised on 2024. Non-HDL Cholesterol 114 mg/dL [facility]AL[facility] Comment: Interpretive Data Ages < or = 19 years Acceptable: <120 mg/dL Borderline high: 120-144 mg/dL High: >145 mg/dL Ages > or = 20 years When triglycerides are >200 mg/dL, Non-HDL cholesterol is a secondary target of therapy with treatment goals that are 30 mg/dL greater than the LDL cholesterol target. Literature References: 1. Expert Panel on Integrated Guidelines for Cardiovascular Health and Risk Reduction in Children and Adolescents. Pediatrics 2011;128:S213 2. NCEP Expert Panel. Circulation 2004;110:227 Current Interpretive Data was last revised on 2018. Chol/HDL ratio 3 [facility] Blood 08/01/2025 8:02 AM CDT 08/01/2025 10:41 AM CDT us Lore Isaac MD LAB BLOOD ORDERABLES F inal Result [facility] [address] [facility] Department [place] [address] * (ABNORMAL) eGFR (05/16/2025 8:31 AM CDT) eGFR 58(L) >=60 mL/min/1. 73 m2 Comment: Interpretive Data Reference Interval Normal >/= 90 mL/min/1.73m2 Mildly decreased* 60 - 89 mL/min/1.73m2 Mildly to moderately decreased 45 - 59 mL/min/1.73m2 Moderately to severely decreased 30 - 44 mL/min/1.73m2 Severely decreased 15 - 29 mL/min/1.73m2 Kidney Failure < 15 mL/min/1.73m2 *Relative to young adult level Estimated glomerular filtration rate is determined by the 2020 CKD-EPI equation recommended by the National Kidney Foundation (A Unifying Approach to GFR Estimation: Recommendations of the NKF-ASK Task Force on Reassessing the Inclusion of Race in Diagnosing Kidney Disease, TANVI 2020). The CKD-EPI equation should not be used for patients with unstable renal function and has not been validated in children and those over 70. Current interpretive data was last reviewed 2021. Blood 05/16/2025 8:31 AM CDT 05/16/2025 10:45 AM CDT Shania Tompkins MD LAB BLOOD ORDERABLES Final Result [facility] [address] [facility] Department [place] [address] * Screening Mammogram Bilateral W Abiel (02/24/2025 1:03 PM CDT) Anatomical Region Laterality Modality Breast Bilateral Mammography Narrative 02/25/2025 3:17 PM CDT Mammogram Technique: Bilateral Digital Breast Tomosynthesis, Bilateral C-view 2D Screening mammogram. Views obtained: bilateral craniocaudal and bilateral mediolateral oblique. Computer Aided Detection was performed. Mammogram Findings: The present examination has been compared to prior imaging studies performed at [facility] on 08/31/2021, 11/11/2022, 02/21/2024 and 10/10/2024. There are scattered areas of fibroglandular density. There is no suspicious abnormality in either breast. There are no significant changes from the prior study. Impression: There is no mammographic evidence of malignancy. Annual screening mammography is recommended. OVERALL FINAL ASSESSMENT: BI-RADS CATEGORY 1: Negative. Procedure Note Jessica Tate MD - 02/25/2025 Mammogram Technique: Bilateral Digital Breast Tomosynthesis, Bilateral C-view 2D Screening mammogram. Views obtained: bilateral craniocaudal and bilateral mediolateral oblique. Computer Aided Detection was performed. Mammogram Findings: The present examination has been compared to prior imaging studies performed at [facility] on 08/31/2021,11/11/2022, 02/21/2024 and 10/10/2024. There are scattered areas of fibroglandular density. There is no suspicious abnormality in either breast. There are no significant changes from the prior study. Impression: There is no mammographic evidence of malignancy. Annual screening mammography is recommended. OVERALL FINAL ASSESSMENT: BI-RADS CATEGORY 1: Negative. us Self Screening Mammogram IMG MAMMO PROCEDURES Fi nal Result * Dexa Axial and Forearm Bone Density Scan (11/20/2023 12:13 PM ORTHOTIC FINISH GRINDING TECHNICIAN) Anatomical Region Laterality Modality Wrist, Body N/A Radiographic Tejal ging Narrative 11/20/2023 1:48 PM ORTHOTIC FINISH GRINDING TECHNICIAN Patient Name: Mary Lou Moser Date of : 1955 Date of scan: 11/20/2023 Bone mineral density was performed on a [employer]oUser[employer] Discovery Densitometer. Based on machine cross-calibration and precision studies the least significant changes of this densitometer is 0.024 g/cm2 at the spine, 0.020 g/cm2 at the total proximal femur, and 0.014g/cm2 at the forearm. HISTORY: This is a 68 y.o. postmenopausal female with a history of osteoporosis and thyroid disease. She reports that she has quit smoking. She has never used smokeless tobacco. Currently on treatment with calcium, vitamin D, zoledronic acid (Reclast), and thyroid hormone. INDICATIONS: Menopause status, treatment monitoring, and history of osteoporosis. FINDINGS: BONE MINERAL DENSITY OF THE LUMBAR SPINE Bone Mineral Density (BMD) of the lumbar spine was measured from L1-L4 and the average density was calculated to be 0.833 gm/cm2. This corresponds to a T-score (standard deviations from the mean of young adults) of -1.9. When compared to the previous study of 12/24/2018 there has been a 0.059 gm/cm (7.7%) increase in bone density that is considered significant. BONE MINERAL DENSITY OF THE PROXIMAL FEMUR Bone Mineral Density (BMD) of the left hip total was found to be 0.869 gm/cm2. This corresponds to a T-score standard deviations from the mean of young adults of -0.6. Femoral neck is 0.698 gm/cm2 with a T-score (standard deviations from the mean of young adults) of -1.4. When compared to the previous study of 12/24/2018 there has been a 0.051 gm/cm (6.2%) increase in bone density that is considered significant. SUMMARY: Bone mineral density shows evidence of low bone mass at the lumbar spine and proximal femur and moderately increased fracture risk (Osteopenia). There has been a significant increase in bone density since previous measurement. ADDITIONAL COMMENTS: Postmenopausal Women and Men Over 50: Diagnostic criteria: Osteoporosis: BMD at or below -2.5 T-score; Osteopenia (low bone mass): BMD between -1.0 and -2.5 T-score. If the patient has a history of a fragility fracture, a fracture that occurred with trauma equivalent to a fall from a standing position or less, then the diagnosis is osteoporosis regardless of bone density. The history and data sections of the bone mineral density scan were prepared by Dianne Self (R)(CBDT) who is accredited by the International Society of Clinical Densitometry. The overall patient assessment and scan interpretation were performed by Brandee Javier M.D. who is certified by the International Society of Clinical Densitometry. [id number] Cecilio Noonan MD IMG DXA PROCEDURES Final Result * HEPATITIS C SCREENING (12/23/2022) [facility] HEP C Normal Comment:per insurance Co 12/07 04/30 Historical Provider HEALTH MAINTENANCE Final Result * COLONOSCOPY (11/20/2015) [facility] Colonoscopy Abnormal Comment:Diverticula, repeat 5 yrs. Historical Provider HEALTH MAINTENANCE Final Result from Last 3 Months or Most Recently Relevant to Health Maintenance Insurance AET[employer] MEDICARE GOLD UHC MEDICARE ADVANTAGE AET[employer] MEDICARE GOLD Advance Directives For more information, please contact: [phone] Documents on File Type Date Recorded Patient Sound Art Instructor Expl anation Power of Biomedical Photographer 08/28/2023 10:17 AM Evelin coleman Power of Biomedical Photographer for Health Care.pdf Care Teams Leacher Relationship Specialty Start Date End Date Francesca Whitman MD PCP - General 04/03/18
--- OUTSIDE RECORDS SUMMARY | 2025-09-29 12:29 | XMS_ITS | Encounter Summary ---
Author Organization [facility] Address [address] [place] [address] Phone Care Team Providers Care Granulating Blender Name Role Phone Francesca Whitman MD Primary Care Provider + Encounter Details Date Type Department Care Team (Late st Contact Info) Description 08/01/2025 Results Follow-Up [facility] [address] 12th [place] [address] [place] [id number] Lore Isaac MD [address] [facility] [address] [place], [place] [id number] Thyroid Function [place], Lipid panel, Hemoglobin A1c Social History Tobacco Use Types Packs/Day Years [...] on file Legal Sex Female 3:13 AM DIRECTOR MBA Gender Identity Female 07/06/2021 8:12 AM CDT Sexual Orientation Not on file documented as of this encounter Plan of Treatment Not on file documented as of this encounter Visit Diagnoses Not on filedocumented in this encounter Care Teams Granulating Blender Relationship Specialty Start Date End Date Francesca Whitman MD PCP - General 04/03/18 documented as of this encounter
--- OUTSIDE RECORDS SUMMARY | 2025-09-29 12:29 | XMS_ITS | Clinical Summary ---
Author Organization [facility] Address [address] [place] [address] Care Team Providers Care Christmas Tree Grower Name Role Phone Francesca Whitman MD Primary Care Provider [phone] Allergies Active Allergy Reactions Criticality Noted Date Comments Penicillins Rash Low 04/03/2023 Medications Calcium-Magnesi um-Vitamin D (CORAL CALCIUM) 185-50-100 MG-MG-UNIT Cap Take 6 capsules by mouth daily. Active vitamin B-12 (CYANOCOBALAMIN ) 500 MCG tablet Take 1 tablet (500 mcg total) by mouth daily. Active methIMAzole (TAPAZOLE) 5 MG tablet Take 0.5 tablets (2.5 mg total) by mouth daily. 03/01/2023 Active Active Problems Problem Noted Date Diagnosed Date Chest pain 04/03/2023 Social History Tobacco Use Types Packs/Day Years Used Date Smoking Tobacco: Never Assessed Comments Unknown Sex and Gender Information Value Date Recorded Sex Assigned at Not on file Legal Sex Female 3:06 PM CDT Gender Identity Not on file Sexual Orientation Not on file Last Filed Vital Signs Vital Sign Reading Time Taken Comments Blood Pressure 124/62 04/04/2023 1:54 PM CDT Pulse 65 04/04/2023 1:54 PM CDT Temperature 37 C (98.6 F) 04/04/2023 8:08 AM CDT Respiratory Rate 18 04/04/2023 1:54 PM CDT Oxygen Saturation 99% 04/04/2023 1:54 PM CDT Inhaled Oxygen Concentration - - Weight 62 kg (136 lb 11 oz) 04/03/2023 3:07 PM C DT Height 172.7 cm (5' 8) 04/03/2023 3:07 PM CDT Body Mass Index 20.78 04/03/2023 3:07 PM CDT Plan of Treatment Health Maintenance Due Date Last Done Comments Colorectal Cancer Screening Colonoscopy (10 Years) 1955 Hepatitis C 1973 DTaP, Tdap and Td Vaccines (1 - Tdap) 1974 Mammogram Screening 1995 Pneumococcal Vaccine: 50+ Years (1 of 1 - PCV) 2005 Annual Medicare Wellness Visit 01/31/2020 Dexa Scan (General) 01/31/2020 COVID-19 Vaccine ( - season) 2025 08/08/2022, 08/06/2021, 12/18/2020, Additional history exists Influenza Adult (#1) 2025 07/19/2021, 07/24/2020, 07/18/2019, Additional history exists RSV Immunization or 60+ Years (1 - 1-dose 75+ series) 2030 Zoster Vaccines Completed 01/14/2021, 08/07/2020 Hepatitis A Vaccines Aged Out No long er eligible based on patient's age to complete this topic Meningococcal B Vaccine Aged Out No l onger eligible based on patient's age to complete this topic Meningococcal Vaccine Aged Out No kathie jimmie eligible based on patient's age to complete this topic RSV Immunizations Under 20 Months Aged Out No longer eligible based on patient's age to complete this topic Insurance [facility] MEDICARE Advance Directives * Full Code (Latest Code Status on File) Date Activated Date Inactivated Comments 04/04/2023 7:09 AM 04/04/2023 3:55 PM Care Teams Christmas Tree Grower Relationship Specialty Start Date End Date Francesca Whitman MD [address] [place] [address] PCP - General INTERNAL MEDICINE 04/03/23
--- OUTSIDE RECORDS SUMMARY | 2025-09-29 12:29 | XMS_ITS | Encounter Summary ---
Author Organization [facility] Address [address] [place] [address] Phone Care Team Providers Care Pattern Shop Supervisor Name Role Phone Tamie Gordillo MD Primary Care Provider [phone] Francesca Whitman MD Primary Care Provider + Encounter Details Date Type Department Care Team (Latest Contact Info) Description 11/20/2017 Orders Only [facility] Scanning, Provider Social History Tobacco Use Types Packs/Day Years Used Date Smoking Tobacco: Never Assessed Comments Unknown Sex and Gender Information Value Date Recorded Sex Assigned at Not on file Legal Sex Female 3:13 AM VICE PRESIDENT RISK MANAGEMENT Gender Identity Female 07/06/2021 8:12 AM CDT Sexual Orientation Not on file documented as of this encounter Plan of Treatment Not on file documented as of this encounter Procedures Procedure Name Priority Date/Time Associated Diagnosis Comments PROCEDURE - RESULT 11/20/2017 documented in this encounter Results * PROCEDURE - RESULT (11/20/2017) us Provider Scanning Final Result documented in this encounter Visit Diagnoses Not on filedocumented in this encounter Additional Health Concerns Infection Onset Date Last Indicated Resolved Time COVID: Suspected 09/24/2022 09/24/2022 09/24/2022 4:20 PM VICE PRESIDENT RISK MANAGEMENT Influenza, adult 09/24/2022 09/24/2022 10/01/2022 3:06 AM VICE PRESIDENT RISK MANAGEMENT documented as of this encounter Care Teams Pattern Shop Supervisor Relationship Specialty Start Date End Date Tamie Gordillo MD [address] [place] [address] PCP - General 02/06/17 04/02/18 Francesca Whitman MD [address] [facility] [address] [place] [address] PCP - General 04/03/18 documented as of this encounter
--- OUTSIDE RECORDS SUMMARY | 2025-09-29 12:29 | XMS_ITS | Clinical Summary ---
Author Organization [email or web address] Address [address] [place] [address] Care Team Providers Care Ceramic Design Engineer Name Role Phone Francesca Whitman MD Primary Care Provider + Source Comments [email or web address],non-owned Affiliates and Associated Physician Practices is amultiple site organization consisting of ambulatory clinics and hospital sitesin [place], [place], [place] and [place]. This disclosure is being madepursuant to the Care Everywhere program and may not contain all information available regarding this patient. Last updated 18.[email or web address] Allergies Active Allergy Reactions Criticality Noted Date Comments Penicillins Urticaria Medium 04/27/2016 Medications * Be aware that medications may not be up to date on this document. Alwaysverify current medications with the patient. methIMAzole (TAPAZOLE) 5 MG tablet 2 1/2 mg once daily 6 Active doxycycline monohydrate 100 MG tabletIndication s:Inflamed epidermoid cyst of skin Take 1 (one) tablet by mouth 2 times daily 60 tablet 2 Active Additional Information Patient not taking.Reported on 11/15/2022 mupirocin (Bactroban) 2 % ointmentIndicati ons:Inflamed epidermoid cyst of skin Apply to affected area twice daily as needed for healing wound. 30 g 2 Active Additional Information Patient not taking.Reported on 11/15/2022 Active Problems Problem Noted Date Diagnosed Date Melanocytic nevi of trunk 03/14/2024 Solar lentiginosis 03/14/2024 Inflamed seborrheic keratosis 03/14/2024 History of nonmelanoma skin cancer 03/14/2024 Hyperparathyroidism 05/23/2022 Mixed hyperlipidemia 04/28/2021 Overview (09/13/2022): Last Assessment & Plan: No personal hx of CVD. April 2021 [...] 117 (H) 05/08/2020 LDL 108 (H) 06/19/2019 Family history of colon cancer 03/16/2021 Overview (09/13/2022): Colonoscopy Nov 2015 [facility] Last Assessment & Plan: Colonoscopy Nov 2015 [facility] Multiple benign nevi of uppe r extremity, lower extremity, and trunk 01/27/2021 Assessment & Plan (01/27/2021 3:37 PM CDT): - No atypical or concerning moles on exam today - Reviewed ABCDEs of melanoma - Sun protection reviewed, handout provided - Annual FBSE recommended Actinic skin damage 01/27/2021 Assessment & Plan (01/27/2021 3:38 PM CDT): - Skin cancer, sun protection, and photoaging discussed - Sunscreen handout provided 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) 01/27/2021 Assessment & Plan (01/27/2021 3:38 PM CDT): - No evidence of recurrence at previous sites - Sun protection education reviewed, handout provided - Annual FBSE recommended Neoplasm of uncertain behavior of skin 1 Assessment & Plan (01/27/2021 3:38 PM CDT): L forehead, stable, present > 40 years - Favor lipoma - Benign, reassurance provided Prediabetes 05/23/2020 Overview (09/13/2022): Last Assessment & Plan: She is very active and has a very healthy diet A1c improved Lab Results Component Value Date HGBA1C 5.6 04/28/2021 HGBA1C 5.8 (H) 05/08/2020 HGBA1C 5.9 (H) 06/19/2019 Achilles bursitis or tendinitis 11/06/2019 Allergic rhinitis 11/06/2019 Cervicalgia 11/06/2019 Temporomandibular joint disorders 11/06/2019 Nailbed spooning 11/06/2019 Nummular eczema 11/06/2019 Other malaise and fatigue 11/06/2019 Pain in joint, shoulder region 11/06/2019 Pain in thoracic spine 11/06/2019 Paronychia of great toe of left foot 11/06/2019 Polyp of nasal cavity 11/06/2019 Sacroiliitis, not elsewhere classified 0 Sicca syndrome 11/06/2019 Tear film insufficiency 11/06/2019 Thyrotoxicosis, unspecified without thyrotoxic crisis or storm 11/06/2019 Vitamin D deficiency, unspecified 11/06/2019 Actinic keratosis 02/06/2019 Assessment & Plan (01/27/2021 3:39 PM CDT): - L dorsal hand x 2 - Premalignant potential discussed - Cryotherapy performed today (see procedure note) - Wound care reviewed, post-cryo handout given - Sun protection reviewed Osteoporosis 08/03/2017 Overview (09/13/2022): Last Assessment & Plan: Endo started alendronate January 2019 (had been delayed due to dental work / InvisAlign) then changed to Reclast zoledronate April 2019 DEXA Jul 2017 L spine -2.6, fem neck -1.6, total hip -1.1, DEXA April 2021 L spine -1.9 (ncr 2.7%), fem neck -2.0, hip -0.5 (incr 0.1%) Lab Results Component Value Date PTH 65 (H) 08/17/2017 Lab Results Component Value Date [id number] 48 07/06/2020 [id number] 29 (L) 12/25/2018 Gluten intolerance 06/09/2017 Overview (09/13/2022): Lab tests ruled out celiac. Had diffuse pain, tenderness all over body; feels better with less gluten. May be gluten sensitivity or FODMAP sensitivity Last Assessment & Plan: Peripheral neuropathy 06/09/2017 Overview (09/13/2022): Last Assessment & Plan: Peripheral neuropathy, painful. Her mother had it too, but no other relatives. Perhaps slight improvement with OTC alpha lipoic acid 2018 Vit B12 was 356 - - suggested taking OTC B12 supplement (1 mg = 1000 mcg/day) Lab Results Component Value Date VITB12 1,172 (H) 07/06/2020 VITB12 356 06/19/2019 VITB12 431.90 06/09/2017 Carpal tunnel syndrome 08/17/2016 Senile sebaceous gland hyperplasia 04/27/2016 Resolved Problems Problem Noted Date Diagnosed Date Resolved Date Acute sinusitis 11/06/2019 12/04/2019 Immunizations Immunization Administration Dates Next Due INFLUENZA VACCINE 07/18/2019 INFLUENZA VACCINE, CELL CULT URE, QUADR. (FLUCELVAX QUADRIVALENT; 6MO+) (CCIIV4) 07/18/2019 INFLUENZA VACCINE, HIGH-DOSE , QUADR. (FLUZONE HIGH-DOSE QUADRIVALENT; 65Y+), 0.7 ML (HD-IIV4) 07/24/2020 Zoster Hzv Vacc Recombinant Inj Im 01/14/2021, iNFLUENZA VACCINE, RECOM-BALLARD, QUADR. (FLUBLOCK QUADRIVALENT; 18Y+) (RIV4) 10/17/2018 Family History Medical History Relation Name Comments None Known Brother None Known Father None Known Maternal Aunt None Known Maternal Grandfather None Known Maternal Grandmother None Known Maternal Uncle None Known Mother None Known Other None Known Paternal Aunt None Known Paternal Grandfather None Known Paternal Grandmother None Known Paternal Uncle None Known Sister Asthma Neg Hx CVA Neg Hx Cancer - Breast Neg Hx Cancer - Other Neg Hx Cancer - Skin, Melanoma Neg Hx Cancer - Skin, Non Melanoma Neg Hx Eczema Neg Hx Hemophilia Neg Hx Psoriasis Neg Hx Relation Name Status Comments Brother Father Maternal Aunt Maternal Grandfather Maternal Grandmother Maternal Uncle Mother Other Paternal Aunt Paternal Grandfather Paternal Grandmother Paternal Uncle Sister Social History Tobacco Use Types Packs/Day Years Used Date Smoking Tobacco: Former Smokeless Tobacco: Never Tobacco Cessation:Counseling Given: Not Answered Alcohol Use Standard Drinks/Week Comments Yes 0 (1 standard drink = 0.6 oz pur e alcohol) Comments Unknown Sex and Gender Information Value Date Recorded Sex Assigned at Not on file Legal Sex Female 10:31 AM SUPERVISOR STRIPPING Gender Identity Not on file Sexual Orientation Not on file Plan of Treatment Health Maintenance Due Date Last Done Comments COLOGUARD (AGES 45-75) - COLON CA SCREENING 1955 COLON MONITORING 1955 COLONOSCOPY - COLON CA SCREENING 1955 CT COLONOGRAPHY - COLON CA SCREENING 1955 Colorectal Cancer Screening 1955 FIT - COLON CA SCREENING 1955 FLEX SIG - COLON CA SCREENING 1955 LIPID TESTING 1955 HEPATITIS C SCREENING 01/25/1973 DTAP/TDAP/TD VACCINES (1 - Tdap) 1974 PNEUMOCOCCAL VACCINE 50+ (1 of 1 - PCV) 2005 Respiratory Syncytial Virus (RSV) Vaccine Pt: or over 60 yrs (1 - Risk 50-74 years 1-dose series) 2005 DEPRESSION SCREENING 10/09/2024 MEDICARE AWV CALENDAR YEAR 2024 COVID-19 VACCINE (3 - 2024- season) 2025 12/18/2020, 11/20/2020 INFLUENZA VACCINE (#1) 2025 , 07/24/2020, 07/18/2019, Additional history exists MAMMOGRAM 02/20/2026 02/21/2024, 02/06, 11/11/2022, Additional history exists ZOSTER VACCINE Completed 01/14/2021, 08/07/2020 BONE DENSITY TESTING Completed 11/20/2023, 08/30/2022, 04/27/2021, Additional history exists HEPATITIS B VACCINE Aged Out No longe r eligible based on patient's age to complete this topic HIB VACCINE Aged Out No longer eligi ble based on patient's age to complete this topic HPV VACCINE Aged Out No longer eligi ble based on patient's age to complete this topic MENINGOCOCCAL (Group B) VACCINE SHARED DECISION-MAKING Aged Out No longer eligible based on patient's age to complete this topic MENINGOCOCCAL GROUPS A/C/Y/W VACCINE Aged Out No longer eligible based on patient's age to complete this topic Insurance AET [facility] AETNA MEDICARE ADV Care Teams Ceramic Design Engineer Relationship Specialty Start Date End Date Francesca Whitman MD PCP - General 02/05/18
--- OUTSIDE RECORDS SUMMARY | 2025-09-29 12:29 | XMS_ITS | Encounter Summary ---
Author Organization [facility] Address [address] [place]: Epic Prelude ADT AICHA OLIVARES [address] Care Team Providers Care Fuel Management Handler Name Role Phone Unavailable Primary Care Provider Unavailabl e Encounter Details Date Type Department Care Team (Late st Contact Info) Description 04/08/1996 Outpatient Historical Andrea Villela Social History Tobacco Use Types Packs/Day Years Used Date Smoking Tobacco: Never Assessed Comments Unknown Sex and Gender Information Value Date Recorded Sex Assigned at Not on file Legal Sex Female 4:39 AM FOUR H AGENT Gender Identity Not on file Sexual Orientation Not on file documented as of this encounter Plan of Treatment Not on file documented as of this encounter Visit Diagnoses Not on filedocumented in this encounter
--- OUTSIDE RECORDS SUMMARY | 2025-09-29 12:29 | XMS_ITS | Encounter Summary ---
Author Organization [facility] Address [address] [place] [address] Care Team Providers Care Weave Defect Charting Clerk Name Role Phone Francesca Whitman MD Primary Care Provider + Encounter Details Date Type Department Care Team (Late st Contact Info) Description 04/09/2021 Telephone [facility] [address] [place] [address] [address] [place] [address] Pamela Aceves, RT Social History Tobacco Use Types Packs/Day Years Used Date Smoking Tobacco: Former Smokeless Tobacco: Never Alcohol Use Standard Drinks/Week Comments Yes 0 (1 standard drink = 0.6 oz pur e alcohol) rarely PHQ-2 Answer Date Recorded PHQ-2 Total Score (If total score is 3 or more points, staff should administer the PHQ-9) 0 06/16/2020 Comments No Sex and Gender Information Value Date Recorded Sex Assigned at Not on file Legal Sex Female 3:13 AM QUARRY SUPERVISOR OPEN PIT Gender Identity Female 07/06/2021 8:12 AM CDT Sexual Orientation Not on file documented as of this encounter Plan of Treatment Not on file documented as of this encounter Visit Diagnoses Not on filedocumented in this encounter Additional Health Concerns Infection Onset Date Last Indicated Resolved Time COVID: Suspected 09/24/2022 09/24/2022 09/24/2022 4:20 PM QUARRY SUPERVISOR OPEN PIT Influenza, adult 09/24/2022 09/24/2022 10/01/2022 3:06 AM QUARRY SUPERVISOR OPEN PIT documented as of this encounter Care Teams Weave Defect Charting Clerk Relationship Specialty Start Date End Date Francesca Whitman MD PCP - General 04/03/18 documented as of this encounter
--- OUTSIDE RECORDS SUMMARY | 2025-09-29 12:29 | XMS_ITS | Encounter Summary ---
Author Organization [facility] Healthcare Address [address] [place] [address] Care Team Providers Care Zinc Miner Name Role Phone Francesca Whitman MD Primary Care Provider + Encounter Details Date Type Department Care Team (Late st Contact Info) Description 04/26/2021 Telephone [facility] [address] [place] [address] [address] [place] [address] Pamela Aceves, RT Social History Tobacco Use [...] on file Legal Sex Female 3:13 AM RADIAL DRILL PRESS OPERATOR Gender Identity Female 07/06/2021 8:12 AM CDT Sexual Orientation Not on file documented as of this encounter Plan of Treatment Not on file documented as of this encounter Visit Diagnoses Not on filedocumented in this encounter Additional Health Concerns Infection Onset Date Last Indicated Resolved Time COVID: Suspected 09/24/2022 09/24/2022 09/24/2022 4:20 PM RADIAL DRILL PRESS OPERATOR Influenza, adult 09/24/2022 09/24/2022 10/01/2022 3:06 AM RADIAL DRILL PRESS OPERATOR documented as of this encounter Care Teams Zinc Miner Relationship Specialty Start Date End Date Francesca Whitman MD PCP - General 04/03/18 documented as of this encounter
--- OUTSIDE RECORDS SUMMARY | 2025-09-29 12:29 | XMS_ITS | Encounter Summary ---
Author Organization [facility] Address [address] [place] [address] Phone Care Team Providers Care Aircraft Delivery Checker Name Role Phone Francesca Whitman MD Primary Care Provider + Encounter Details Date Type Department Care Team (Latest Contact Info) Description 05/28/2021 Orders Only [facility] Scanning, Provider Social History Tobacco Use Types Packs/Day Years Used Date Smoking Tobacco: Former Smokeless Tobacco: Never Alcohol Use Standard Drinks/Week Comments Yes 0 (1 standard drink = 0.6 oz pur e alcohol) rarely AUDIT-C Answer Date Recorded Q1: How often do you have a drink containing alc ohol? Never 05/25/2021 Average Number of Drinks Not on file 021 Frequency of Binge Drinking Not on file 05/09 PHQ-2 Answer Date Recorded PHQ-2 Total Score (If total score is 3 or more points, staff should administer the PHQ-9) 0 06/16/2020 Comments No Sex and Gender Information Value Date Recorded Sex Assigned at Not on file Legal Sex Female 3:13 AM SEMICONDUCTOR PACKAGES TESTER Gender Identity Female 07/06/2021 8:12 AM CDT Sexual Orientation Not on file documented as of this encounter Plan of Treatment Not on file documented as of this encounter Procedures Procedure Name Priority Date/Time Associated Diagnosis Comments SCAN - RADIOLOGY/IMAGING 05/28/2021 documented in this encounter Results * SCAN - RADIOLOGY/IMAGING (05/28/2021) Anatomical Region Laterality Modality Other us Provider Scanning Edited Result - Final documented in this encounter Visit Diagnoses Not on filedocumented in this encounter Additional Health Concerns Infection Onset Date Last Indicated Resolved Time COVID: Suspected 09/24/2022 09/24/2022 09/24/2022 4:20 PM SEMICONDUCTOR PACKAGES TESTER Influenza, adult 09/24/2022 09/24/2022 10/01/2022 3:06 AM SEMICONDUCTOR PACKAGES TESTER documented as of this encounter Care Teams Aircraft Delivery Checker Relationship Specialty Start Date End Date Francesca Whitman MD PCP - General 04/03/18 documented as of this encounter
--- OUTSIDE RECORDS SUMMARY | 2025-09-29 13:22 | XMS_ITS | Encounter Summary ---
Author Organization [facility] Healthcare Address [address] [place] [address] Care Team Providers Care Territory Sales Representative Name Role Phone Francesca Whitman MD Primary Care Provider + Encounter Details Date Type Department Care Team (Late st Contact Info) Description 04/26/2021 Telephone [facility] [address] [place] [address] [address] [place] [address] Pamela Aceves, RT Social History Tobacco Use [...] on file Legal Sex Female 3:13 AM CRYPTOLOGIST Gender Identity Female 07/06/2021 8:12 AM CDT Sexual Orientation Not on file documented as of this encounter Plan of Treatment Not on file documented as of this encounter Visit Diagnoses Not on filedocumented in this encounter Additional Health Concerns Infection Onset Date Last Indicated Resolved Time COVID: Suspected 09/24/2022 09/24/2022 09/24/2022 4:20 PM CRYPTOLOGIST Influenza, adult 09/24/2022 09/24/2022 10/01/2022 3:06 AM CRYPTOLOGIST documented as of this encounter Care Teams Territory Sales Representative Relationship Specialty Start Date End Date Francesca Whitman MD PCP - General 04/03/18 documented as of this encounter
--- OUTSIDE RECORDS SUMMARY | 2025-09-29 13:22 | XMS_ITS | Clinical Summary ---
Author Organization [facility] Address [address] [place] [address] Care Team Providers Care Biodiesel Technology Manager Name Role Phone Francesca Whitman MD Primary Care Provider + Source Comments [facility],non-owned Affiliates and Associated Physician Practices is amultiple site organization consisting of ambulatory clinics and hospital sitesin [place], [place], [place] and [place]. This disclosure is being madepursuant to the Care Everywhere program and may not contain all information available regarding this patient. Last updated 18.[facility] Allergies Active Allergy Reactions Criticality Noted Date [...] cancer 03/16/2021 Overview (09/13/2022): Colonoscopy Nov 2015 [facility] Last Assessment & Plan: Colonoscopy Nov 2015 [facility] Multiple benign nevi of uppe [...] (H) 08/17/2017 Lab Results Component Value Date [id number] 48 07/06/2020 [id number] 29 (L) 12/25/2018 Gluten intolerance 06/09/2017 Overview [...] on file Legal Sex Female 10:31 AM BUSINESS ANALYSIS PROFESSIONAL Gender Identity Not on file Sexual Orientation [...] age to complete this topic Insurance AET [facility] AETNA MEDICARE ADV Care Teams Biodiesel Technology Manager Relationship Specialty Start Date End Date Francesca Whitman MD PCP - General 02/05/18
--- OUTSIDE RECORDS SUMMARY | 2025-09-29 13:22 | XMS_ITS | Clinical Summary ---
Author Organization [facility] Address [address] [place] [address] Care Team Providers Care Ramp Manager Name Role Phone Francesca Whitman MD Primary Care Provider [phone] Allergies Active Allergy Reactions Criticality Noted Date [...] patient's age to complete this topic Insurance [facility] MEDICARE Advance Directives * Full Code (Latest Code Status on File) Date Activated Date Inactivated Comments 04/04/2023 7:09 AM 04/04/2023 3:55 PM Care Teams Ramp Manager Relationship Specialty Start Date End Date Francesca Whitman MD [address] [place] [address] PCP - General INTERNAL MEDICINE 04/03/23
--- OUTSIDE RECORDS SUMMARY | 2025-09-29 13:22 | XMS_ITS | Encounter Summary ---
Author Organization [facility] Address [address] [place] [address] Phone Care Team Providers Care Director [place] Name Role Phone Francesca Whitman MD Primary [...] on file Legal Sex Female 3:13 AM CELL ATTENDANT Gender Identity Female 07/06/2021 8:12 AM CDT [...] COVID: Suspected 09/24/2022 09/24/2022 09/24/2022 4:20 PM CELL ATTENDANT Influenza, adult 09/24/2022 09/24/2022 10/01/2022 3:06 AM CELL ATTENDANT documented as of this encounter Care Teams Director China Relationship Specialty Start Date End Date Francesca Whitman MD PCP - General 04/03/18 documented as of this encounter
--- OUTSIDE RECORDS SUMMARY | 2025-09-29 13:23 | XMS_ITS | Encounter Summary ---
Author Organization [facility] Address [address] [place] [address] Phone Care Team Providers Care Printer Maintainer Name Role Phone Francesca Whitman MD Primary Care Provider + Encounter Details Date Type Department Care Team (Late st Contact Info) Description 08/01/2025 Results Follow-Up [facility] [address]th [place] [address] [place] [phone] Lore Isaac MD [address] [facility] [address] [place], [place] [id number] Thyroid Function [place], Lipid panel, Hemoglobin A1c Social History Tobacco [...] on file Legal Sex Female 3:13 AM ADVICE CLERK Gender Identity Female 07/06/2021 8:12 AM CDT Sexual Orientation Not on file documented as of this encounter Plan of Treatment Not on file documented as of this encounter Visit Diagnoses Not on filedocumented in this encounter Care Teams Printer Maintainer Relationship Specialty Start Date End Date Francesca Whitman MD PCP - General 04/03/18 documented as of this encounter
--- OUTSIDE RECORDS SUMMARY | 2025-09-29 13:23 | XMS_ITS | Clinical Summary ---
Author Organization [facility] Address [address] [place] [address] Care Team Providers Care Allergy And Immunology Chief Name Role Phone Francesca Whitman MD Primary [...] Colon CA screening - Colonoscopy Nov 2015 [facility] - tics - Colonoscopy April 2021 ([facility] [place]) one 6mm polyp; repeat in [...] cancer 03/16/2021 Overview (06/06/2021): Colonoscopy Nov 2015 [facility] Assessment & Plan (06/06/2021 5:57 PM CDT): Colonoscopy Nov 2015 [facility] History of squamous cell carcinoma in [...] (H) 08/17/2017 Lab Results Component Value Date [id number] 48 07/06/2020 [id number] 29 (L) 12/25/2018 Thyrotoxicosis, unspecified without thyrotoxic [...] Colon CA screening - Colonoscopy Nov 2015 [facility] - tics - Pap per Dag Coater - [employer] Aug 2017 (, LMP age [...] (H) 08/17/2017 Lab Results Component Value Date [id number] 48 07/06/2020 [id number] 29 (L) 12/25/2018 Assessment & Plan (04/28/2021 [...] Department Care Team Description 09/29/2025 11:15 AM WATCH CRYSTAL GRINDER Office Visit [facility] Care at [address] [phone] Reina Odonnell NP Lower abdominal pain (Primary Dx); Pelvic pain 08/05/2025 1:00 PM CDT Office Visit [place] [address] [facility] Medical Office Building [address] [place] [address] Francesca Whitman MD Encounter for Medicare annual wellness exam (Primary Dx); Diabetes type 2, controlled; Mixed hyperlipidemia; Hyperthyroidism 08/05/2025 9:00 AM CDT Clinical Support [facility] Metabolism and Lipid [address] [place] [address] 13th [place] [address] [place] [phone] Diabetes type 2, controlled (Primary Dx) 08/01/2025 7:55 AM CDT Lab [address] [address] Hyperthyroidism; Mixed hyperlipidemia; Prediabetes 08/01/2025 Results Follow-Up [facility] 12th [place] [address] [place] [address] Lore Isaac MD Thyroid Function [place], Lipid panel, Hemoglobin A1c 07/29/2025 9:00 AM CDT Clinical Support [facility] Metabolism and Lipid [address] [facility] [address]th [place] [address] [place] [address] Hyperglycemia due to diabetes mellitus (HCC) (Primary Dx) 07/22/2025 9:00 AM CDT Clinical Support [facility] Metabolism and Lipid [address] [facility] 13th [place] [address] [place] [address] Type 2 diabetes mellitus without complication, without long-term current use of insulin (HCC) (Primary Dx) 07/15/2025 9:00 AM CDT Clinical Support [facility] Metabolism and Lipid [address] [facility] [address]th [place] [address] [place] [address] Hyperglycemia due to diabetes mellitus (HCC) (Primary Dx) from Last 3 Months Immunizations Immunization Administration Dates Next Due COVID-19 mRNA (Health[employer]ocket) 0.3 m L (30 mcg) vaccine (12 [...] on file Legal Sex Female 3:13 AM WATCH CRYSTAL GRINDER Gender Identity Female 07/06/2021 8:12 AM CDT [...] Comments Blood Pressure 103/69 09/29/2025 9:28 AM WATCH CRYSTAL GRINDER Pulse 85 09/29/2025 9:28 AM WATCH CRYSTAL GRINDER Temperature 37 C (98.6 F) 09/29/2025 9:28 AM WATCH CRYSTAL GRINDER Respiratory Rate 18 09/29/2025 9:28 AM WATCH CRYSTAL GRINDER Oxygen Saturation 98% 09/29/2025 9:28 AM WATCH CRYSTAL GRINDER Inhaled Oxygen Concentration - - Weight 56.7 kg (125 lb) 09/29/2025 9:28 AM WATCH CRYSTAL GRINDER Height 172.7 cm (5' 8) 09/29/2025 9:28 AM WATCH CRYSTAL GRINDER Body Mass Index 19.01 09/29/2025 9:28 AM WATCH CRYSTAL GRINDER Plan of Treatment Health Maintenance Due Date [...] POCT URINALYSIS DIPSTICK Routine 09/29/2025 9:58 AM WATCH CRYSTAL GRINDER Lower abdominal pain HEMOGLOBIN A1C Routine 08/01/2025 [...] Read Routine (OP Routine) 11/20/2023 12:13 PM WATCH CRYSTAL GRINDER Other osteoporosis without current pathological fracture HEPATITIS C SCREENING Routine 12/23/2022 COLONOSCOPY Routine 11/20/2015 from Last 3 Months or Most Recently Relevant to Health Maintenance Results * (ABNORMAL) POCT urinalysis dipstick (09/29/2025 9:58 AM WATCH CRYSTAL GRINDER) Color, Urine, POC Dark Yellow Clarity, ur, POC Clear Clear Glucose, ur, POC Negative Negative Bilirubin, ur, POC Negative Negative Ketones, ur, POC Trace(A) Negative Specific [place], POC 1.015 1.003 - 1.030 Blood, ur, POC Trace(A) Negative pH, ur, POC 6.5 5.0 - 8.0 Protein, ur, POC Negative Negative Urobilinogen, urine, POC 0.2 0.2 - 1.0 mg/dL Nitrite, ur, POC Negative Negative Leukocytes, ur, POC Negative Negative Lot Number [id number] Urine 09/29/2025 9:58 AM WATCH CRYSTAL GRINDER Reina Odonnell NP POINT OF CARE TEST ORDERAB LES Final Result * Thyroid Function [place] (08/01/2025 8:02 AM CDT) TSH 1.43 0.30 - 4.20 mcIUnit/mL Blood 08/01/2025 8:02 AM CDT 08/01/2025 10:41 AM CDT Lore Isaac MD LAB BLOOD ORDERABLES F inal Result Performing Organization Address [facility] de Phone Number [address] [address] * (ABNORMAL) Hemoglobin A1c (08/01/2025 8:02 AM CDT) [facility] Hgb A1C 5.9(H) 4.0 - 5.6 % Estimated Average Glucose 123 mg/dL [facility] Comment: The ADA recommends reporting an estimated Average Glucose (eAG) with all Hemoglobin A1c results using the equation derived from a study of 507 normal and diabetic adults. Minority populations were underrepresented and children were not included. (Diabetes Care 31:1825-9254, 2008). The eAG is not equivalent to a fasting glucose. Blood 08/01/2025 8:02 AM CDT 08/01/2025 10:41 AM CDT Lore Isaac MD LAB BLOOD ORDERABLES F inal Result Performing Organization Address [facility] de Phone Number [address] [address] * Lipid panel (08/01/2025 8:02 AM CDT) Pathologist [facility] Cholesterol 174 30 - 199 mg/dL Comment: [...] LAB BLOOD ORDERABLES F inal Result [facility] [address] [facility] Department [place] [address] * (ABNORMAL) eGFR (05/16/2025 8:31 [...] MD LAB BLOOD ORDERABLES Final Result [facility] [address] [facility] Department [place] [address] * Screening Mammogram Bilateral W Abiel (02/24/2025 1:03 PM CDT) Anatomical Region Laterality Modality Breast Bilateral Mammography Narrative 02/25/2025 3:17 PM CDT Mammogram Technique: Bilateral Digital Breast Tomosynthesis, Bilateral C-view 2D Screening mammogram. Views obtained: bilateral craniocaudal and bilateral mediolateral oblique. Computer Aided Detection was performed. Mammogram Findings: The present examination has been compared to prior imaging studies performed at [facility] on 08/31/2021, 11/11/2022, 02/21/2024 and 10/10/2024. There [...] compared to prior imaging studies performed at [facility] on 08/31/2021,11/11/2022, 02/21/2024 and 10/10/2024. There are [...] Forearm Bone Density Scan (11/20/2023 12:13 PM WATCH CRYSTAL GRINDER) Anatomical Region Laterality Modality Wrist, Body N/A Radiographic Tejal ging Narrative 11/20/2023 1:48 PM WATCH CRYSTAL GRINDER Patient Name: Mary Lou Moser Date of : 1955 Date of scan: 11/20/2023 Bone mineral density was performed on a HoloConnectEdu Discovery Densitometer. Based on machine cross-calibration and [...] by the International Society of Clinical Densitometry. [id number] Cecilio Noonan MD IMG DXA PROCEDURES Final Result * HEPATITIS C SCREENING (12/23/2022) [facility] HEP C Normal Comment:per insurance Co 12/07 04/30 Historical Provider HEALTH MAINTENANCE Final Result * COLONOSCOPY (11/20/2015) [facility] Colonoscopy Abnormal Comment:Diverticula, repeat 5 yrs. Historical Provider HEALTH MAINTENANCE Final Result from Last 3 Months or Most Recently Relevant to Health Maintenance Insurance AETNA MEDICARE GOLD [employer] MEDICARE ADVANTAGE AETNA MEDICARE GOLD Advance Directives For more information, please contact: [phone] Documents on File Type Date Recorded Patient Financial Analysis Advisor Expl anation Power of Patient Case Manager 08/28/2023 10:17 AM Evelin coleman Power of Patient Case Manager for Health Care.pdf Care Teams Allergy And Immunology Chief Relationship Specialty Start Date End Date Francesca Whitman MD PCP - General 04/03/18
--- OUTSIDE RECORDS SUMMARY | 2025-09-29 13:23 | XMS_ITS | Clinical Summary ---
Author Organization [facility] Address [address] [place]: Epic Prelude ADT [place]HA [place] [address] Care Team Providers Care Zinc Miner Name Role Phone Unavailable Primary Care Provider Unavailabl e Social History Tobacco Use Types Packs/Day Years Used Date Smoking Tobacco: Never Assessed Comments Unknown Sex and Gender Information Value Date Recorded Sex Assigned at Not on file Legal Sex Female 4:39 AM HYDRO SPRAYER OPERATOR Gender Identity Not on file Sexual Orientation [...]
--- OUTSIDE RECORDS SUMMARY | 2025-09-29 13:23 | XMS_ITS | Encounter Summary ---
Author Organization [facility] Address [address] [place]: Epic Prelude ADT [place] [address] Care Team Providers Care Straight Line Edger Name Role Phone Unavailable Primary Care Provider Unavailabl e Encounter Details Date Type Department Care Team (Late st Contact Info) Description 08/07/1995 Outpatient Historical Andrea V[place]la Social History Tobacco Use Types Packs/Day Years Used Date Smoking Tobacco: Never Assessed Comments Unknown Sex and Gender Information Value Date Recorded Sex Assigned at Not on file Legal Sex Female 4:39 AM SPEECH/LANGUAGE THERAPIST Gender Identity Not on file Sexual Orientation Not on file documented as of this encounter Plan of Treatment Not on file documented as of this encounter Visit Diagnoses Not on filedocumented in this encounter
--- OUTSIDE RECORDS SUMMARY | 2025-09-29 13:23 | XMS_ITS | Encounter Summary ---
Author Organization [facility] Address [address] [place] [address] Care Team Providers Care Health Unit Coordinator Name Role Phone Unavailable Primary Care Provider Unavailabl e Encounter Details Date Type Department Care Team (Late st Contact Info) Description 01/11/2000 Outpatient Historical [facility] CONSTRUCTION MANAGEMENT ASSISTANT - Medical [facility] [address] [facility] [address] [address] Andrea Villela Social History Tobacco Use Types Packs/Day Years Used Date Smoking Tobacco: Never Assessed Comments Unknown Sex and Gender Information Value Date Recorded Sex Assigned at Not on file Legal Sex Female 4:39 AM QUALITY CONTROL LAB TECHNICIAN Gender Identity Not on file Sexual Orientation Not on file documented as of this encounter Plan of Treatment Not on file documented as of this encounter Visit Diagnoses Not on filedocumented in this encounter
--- OUTSIDE RECORDS SUMMARY | 2025-09-29 13:23 | XMS_ITS | Encounter Summary ---
Author Organization [facility] Address [address] [place]: Epic Prelude ADT [place] [address] Care Team Providers Care Controls Technician Name Role Phone Unavailable Primary Care Provider Unavailabl e Encounter Details Date Type Department Care Team (Late st Contact Info) Description 04/08/1996 Outpatient Historical Andrea Villela Social History Tobacco Use Types Packs/Day Years Used Date Smoking Tobacco: Never Assessed Comments Unknown Sex and Gender Information Value Date Recorded Sex Assigned at Not on file Legal Sex Female 4:39 AM DOOR MANAGER Gender Identity Not on file Sexual Orientation Not on file documented as of this encounter Plan of Treatment Not on file documented as of this encounter Visit Diagnoses Not on filedocumented in this encounter
--- OUTSIDE RECORDS SUMMARY | 2025-09-29 13:23 | XMS_ITS | Encounter Summary ---
Author Organization [facility] Address [address] [place] [address] Phone Care Team Providers Care Conservation Assistant Name Role Phone Tamie Gordillo MD Primary Care Provider [phone] Francesca Whitman MD Primary Care Provider + Encounter Details Date Type Department Care Team (Latest Contact Info) Description 11/20/2017 Orders Only [facility] Scanning, Provider Social History Tobacco Use Types Packs/Day Years Used Date Smoking Tobacco: Never Assessed Comments Unknown Sex and Gender Information Value Date Recorded Sex Assigned at Not on file Legal Sex Female 3:13 AM COOK APPRENTICE Gender Identity Female 07/06/2021 8:12 AM CDT [...] COVID: Suspected 09/24/2022 09/24/2022 09/24/2022 4:20 PM COOK APPRENTICE Influenza, adult 09/24/2022 09/24/2022 10/01/2022 3:06 AM COOK APPRENTICE documented as of this encounter Care Teams Conservation Assistant Relationship Specialty Start Date End Date Tamie Gordillo MD [address] [place] [address] PCP - General 02/06/17 04/02/18 Francesca Whitman MD [address] [facility] [address] [place] [address] PCP - General 04/03/18 documented as of this encounter
--- OUTSIDE RECORDS SUMMARY | 2025-09-29 13:23 | XMS_ITS | Encounter Summary ---
Author Organization [facility] Healthcare Address [address] [place] [address] Care Team Providers Care Telephoto Installer Name Role Phone Francesca Whitman MD Primary Care Provider + Encounter Details Date Type Department Care Team (Late st Contact Info) Description 04/09/2021 Telephone [facility] [address] [place] [address] [address] [place] [address] Pamela Aceves, RT Social History Tobacco Use [...] on file Legal Sex Female 3:13 AM POULTRY FARMER EGG Gender Identity Female 07/06/2021 8:12 AM CDT Sexual Orientation Not on file documented as of this encounter Plan of Treatment Not on file documented as of this encounter Visit Diagnoses Not on filedocumented in this encounter Additional Health Concerns Infection Onset Date Last Indicated Resolved Time COVID: Suspected 09/24/2022 09/24/2022 09/24/2022 4:20 PM POULTRY FARMER EGG Influenza, adult 09/24/2022 09/24/2022 10/01/2022 3:06 AM POULTRY FARMER EGG documented as of this encounter Care Teams Telephoto Installer Relationship Specialty Start Date End Date Francesca Whitman MD PCP - General 04/03/18 documented as of this encounter
[2025-09-29] MEDS: CIPROFLOXACIN 500 MG TAB PO (13:52)
[2025-09-29 13:53] VITALS: BP 136/88; PULSE 80; RESP 16; O2SAT 97
== END 2025-09-29 13:53 | disposition home or self-care (01) ==
PROVIDERS: Emergency Provider Physician Assistant
DX: K57.32 Diverticulitis of large intestine without perforation or abscess without bleeding (principal)
CPT/HCPCS: 36415; 74177; 80053; 81001; 83605; 83690; 85025; 87086; 99284; A9270; Q9967